=== PATIENT | female | born 1990 | race Caucasian/White ===

== ENCOUNTER → 2017-01-24 | Outpatient (CLI) | payer MEDICAID ==
[2017-01-24 07:56] LABS: ALT 66 U/L (9-52); AST 42 U/L (14-36); Alkaline Phosphatase 71 U/L (38-126); Anion Gap 10 mmol/L; Blood Urea Nitrogen 14 mg/dL (7-17); Calcium 10.1 mg/dL (8.4-10.2); Carbon Dioxide 26 mmol/L (22-30); Chloride 106 mmol/L (98-107); Cholesterol 190 mg/dL (<200); Glucose 101 mg/dL (74-99); HDL Cholesterol 54 mg/dL (40-60); Non-African American GFR(MDRD) >60 (>60 ml/min/1.73 sqM); Potassium 5.6 mmol/L (3.5-5.1); Sodium 142 mmol/L (137-145); Total Bilirubin 0.3 mg/dL (0.2-1.3); Total Protein 7.8 g/dL (6.3-8.2); Triglycerides 139 mg/dL (<150)
[2017-01-24 08:46] LABS: Basophils # (A) 0.1 k/uL (0-0.2); Basophils % (A) 2 %; CH 29.1; CHCM 33.8; Eosinophils # (A) 0.2 k/uL (0-0.7); Eosinophils % (A) 3 %; HCT 43.1 % (34.0-46.0); HDW 2.44; HGB 14.1 gm/dL (11.4-16.0); Luc # (Auto) 0.12; Luc % (Auto) 2; Lymphocytes # (A) 1.8 k/uL (1.0-4.8); Lymphocytes % (A) 32 %; MCH 28.2 pg (25.0-35.0); MCHC 32.6 g/dL (31.0-37.0); MCV 86.4 fL (80.0-100.0); Mean Platelet Volume 7.1; Monocytes # (A) 0.3 k/uL (0-1.0); Monocytes % (A) 6 %; Neutrophils # (A) 3.2 k/uL (1.3-7.7); Neutrophils % (A) 56 %; RBC 4.99 m/uL (3.80-5.40); RDW 13.1 % (11.5-15.5); WBC 5.8 k/uL (3.8-10.6); WBC (Perox) 5.72
== END | disposition home or self-care (01) ==
LOC: LABWHC1 06:47
PROVIDERS: ATTEND Internal Medicine
DX: Z00.01 Encounter for general adult medical examination with abnormal findings (principal)
CPT/HCPCS: 36415; 80053; 80061; 84439; 84443; 85025

== ENCOUNTER → 2017-02-06 | Outpatient (CLI) | payer MEDICAID ==
--- NOTE | 2017-02-06 11:27 | US ---
EXAMINATION TYPE: US abdomen complete DATE OF EXAM: 02/06/2017 COMPARISON: NONE CLINICAL HISTORY: 26-year-old female R74.8 ABN LIVER ENZYMES. TECHNIQUE: Multiple sonographic images of the abdomen are obtained. FINDINGS: MANAGER PATHOLOGY NOTES: *Technical limitations due to large amount of overlying bowel content Liver Length: 19.2 cm Gallbladder Wall: 0.3 cm CBD: 0.3 cm Spleen: 11.4 cm Right Kidney: 11.2 x 4.2 x 4.1 cm Left Kidney: 12.2 x 5.2 x 4.8 cm Pancreas: limited evaluation due to overlying bowel content . Only a portion of the pancreatic body is seen. Liver: enlarged, heterogeneous, echogenic, and attenuating. This secondary limits assessment for foc al lesion. However, some focal fat is seen along the gallbladder fossa. Gallbladder: Within normal limits Evidence for sonographic Morales's sign: no CBD: wnl Spleen: wnl Right Kidney: no evidence of hydronephrosis. Left Kidney: no evidence of hydronephrosis Upper IVC: wnl Abd Aorta: wnl IMPRESSION: Hepatomegaly with moderate to severe hepatic steatosis. Correlate with LFTs, lipid profile, and patie nt risk factors.
== END ==
LOC: RADUSWWP 10:11
PROVIDERS: ATTEND Internal Medicine
DX: K76.0 Fatty (change of) liver, not elsewhere classified (principal); R16.0 Hepatomegaly, not elsewhere classified
CPT/HCPCS: 76700

== ENCOUNTER → 2017-03-27 | Outpatient (CLI) | payer MEDICAID ==
[2017-03-27 14:34] LABS: ALT 55 U/L (9-52); AST 33 U/L (14-36); Alkaline Phosphatase 88 U/L (38-126); Anion Gap 12 mmol/L; Blood Urea Nitrogen 11 mg/dL (7-17); Calcium 9.5 mg/dL (8.4-10.2); Carbon Dioxide 24 mmol/L (22-30); Chloride 105 mmol/L (98-107); Glucose 92 mg/dL (74-99); Non-African American GFR(MDRD) >60 (>60 ml/min/1.73 sqM); Potassium 4.1 mmol/L (3.5-5.1); Sodium 141 mmol/L (137-145); Total Bilirubin 0.3 mg/dL (0.2-1.3); Total Protein 7.9 g/dL (6.3-8.2)
[2017-03-27 19:41] LABS: Iron Saturation 14.29 (12.00-45.00); Iron(FE) 53 ug/dL (50-170); Total Iron Binding Capacity 371 ug/dL (228-460)
[2017-03-27 20:45] LABS: ANA w/Reflex to Titer NEGATIVE (NEGATIVE)
== END | disposition home or self-care (01) ==
LOC: LABWHC1 14:02
PROVIDERS: ATTEND Internal Medicine Gastroenterology
DX: K76.0 Fatty (change of) liver, not elsewhere classified (principal)
CPT/HCPCS: 36415; 80053; 82103; 82390; 82728; 83516; 83540; 83550; 86038; 86803; 87340

== ENCOUNTER 2018-04-06 10:36 | Emergency (ER) | payer MEDICAID ==
[2018-04-06] MEDS ORDERED: SODIUM CHLORIDE 0.9% 1,000 ML IV STA (11:29)
[2018-04-06] MEDS ORDERED: ONDANSETRON 4 MG/2 ML VIAL IVP STA (11:29)
[2018-04-06] MEDS ORDERED: ACETAMINOPHEN IV (For NPO) 1,000 MG in EMPTY BAG 1 BAG IVPB STA (11:29)
--- NOTE | 2018-04-06 11:31 | ED ---
General Adult HPI - General Chief complaint: Nausea/Vomiting/Diarrhea Stated complaint: poss flu Time Seen by Provider: 04/06/18 11:19 Source: patient, RN notes reviewed Mode of arrival: ambulatory Limitations: no limitations - History of Present Illness Initial comments: Patient 27-year-old female presenting to emergency room today with chief complaint of fevers over the last week feeling nausea and vomiting unable to keep anything down over the past 2 days. Patient denies any specific abdominal pain. She does not that she had upper respiratory symptoms 1 week ago but seems a status improved. She states that she has had increased nausea vomiting past 2 days unable to keep food or medicine down. Patient admits to mild headache. Denies any other complaints or symptoms. Patient denies any recent shortness of breath, chest pain, back pain, numbness or tingling, dysuria or hematuria, constipation or diarrhea, visual changes, or any other complaints. - Related Data Home Medications Medication Instructions Recorded Confirmed Venlafaxine HCl ER [Effexor Xr] 150 mg PO W/SUPPER 04/06/18 04/06/18 Previous Rx's Medication Instructions Recorded Metoclopramide HCl [Reglan] 10 mg PO Q6HR PRN #15 tab 04/06/18 Allergies Allergy/AdvReac Type Severity Reaction Status Date / Time No Known Allergies Allergy Verified 04/06/18 11:18 Review of Systems ROS Statement: Those systems with pertinent positive or pertinent negative responses have been documented in the HPI. ROS Other: All systems not noted in ROS Statement are negative. Past Medical History Past Medical History: No Reported History History of Any Multi-Drug Resistant Organisms: None Reported Past Surgical History: Appendectomy Additional Past Surgical History / Comment(s): 2005 Past Anesthesia/Blood Transfusion Reactions: No Reported Reaction Past Psychological History: No Psychological Hx Reported Smoking Status: Never smoker Past Alcohol Use History: None Reported Past Drug Use History: None Reported - Past Family History Father Family Medical History: Diabetes Mellitus General Exam - General Exam Comments Initial Comments: General: The patient is awake and alert, in no distress, and does not appear acutely ill. Eye: Pupils are equal, round and reactive to light. Extra-ocular movements are intact. No nystagmus. There is normal conjunctiva bilaterally. No signs of icterus. Ears, nose, mouth and throat: There are moist mucous membranes and no oral lesions. Neck: The neck is supple, there is no tenderness or JVD. Cardiovascular: There is a regular rate and rhythm. No murmur, rub or gallop is appreciated. Respiratory: Lungs are clear to auscultation, respirations are non-labored, breath sounds are equal. No wheezes, stridor, rales, or rhonchi. Gastrointestinal: Soft, non-distended, non-tender abdomen without masses or organomegaly noted. There is no rebound or guarding present. No CVA tenderness. Musculoskeletal: Normal ROM, no tenderness. Sensation intact. Strength 5/5. Pulses equal bilaterally 2+. Neurological: A&O x 3. CN II-XII intact, There are no obvious motor or sensory deficits. Coordination appears grossly intact. Speech is normal. Skin: Skin is warm and dry and no rashes or lesions are noted. Psychiatric: Cooperative, appropriate mood & affect, normal judgment. Limitations: no limitations Course Vital Signs 04/06/18 04/06/18 04/06/18 10:38 13:07 14:08 Temperature 98.6 F 100.6 F H Pulse Rate 116 H 94 92 Respiratory 20 18 18 Rate Blood Pressure 130/89 140/90 113/77 O2 Sat by Pulse 100 98 99 Oximetry Medical Decision Making - Medical Decision Making Patient reexamined at this time shows no signs of distress. She is resting comfortably. Patient's labs are been reviewed does show mildly elevated lipase at 385. Patient has no specific abdominal pain on palpation. Right upper quadrant is nontender. Ultrasound was performed showing no evidence of acute cholecystitis. Common bile duct was with the normal limits. H&H is had fevers off and on over the last week. 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 She's had some nausea vomiting which improved after Reglan here in the ER. Patient's symptoms are felt to be due to viral illness. Chest x-ray is clear. At this time patient discomfort being discharged with nausea medication. Advised continue Tylenol/ibuprofen for pain and fever. Advised follow-up the family doctor over the next 2 days return here to the emergency room if any symptoms increase worsen. - Lab Data Result diagrams: 04/06/18 11:57 04/06/18 11:57 Lab Results 04/06/18 04/06/18 04/06/18 Range/Units 11:57 11:57 11:57 WBC 9.0 (3.8-10.6) k/uL RBC 4.62 (3.80-5.40) m/uL Hgb 13.6 (11.4-16.0) gm/dL Hct 38.8 (34.0-46.0) % MCV 83.8 (80.0-100.0) fL MCH 29.3 (25.0-35.0) pg MCHC 35.0 (31.0-37.0) g/dL RDW 12.4 (11.5-15.5) % Plt Count 415 (150-450) k/uL Neutrophils % 86 % Lymphocytes % 9 % Monocytes % 3 % Eosinophils % 1 % Basophils % 0 % Neutrophils # 7.7 (1.3-7.7) k/uL Lymphocytes # 0.8 L (1.0-4.8) k/uL Monocytes # 0.3 (0-1.0) k/uL Eosinophils # 0.0 (0-0.7) k/uL Basophils # 0.0 (0-0.2) k/uL Sodium 141 (137-145) mmol/L Potassium 4.4 (3.5-5.1) mmol/L Chloride 105 (98-107) mmol/L Carbon Dioxide 23 (22-30) mmol/L Anion Gap 13 mmol/L BUN 18 H (7-17) mg/dL Creatinine 0.64 (0.52-1.04) mg/dL Est GFR (CKD-EPI)AfAm >90 (>60 ml/min/1.73 sqM) Est GFR (CKD-EPI)NonAf >90 (>60 ml/min/1.73 sqM) Glucose 109 H (74-99) mg/dL Calcium 10.2 (8.4-10.2) mg/dL Total Bilirubin 0.6 (0.2-1.3) mg/dL AST 36 (14-36) U/L ALT 41 (9-52) U/L Alkaline Phosphatase 83 (38-126) U/L Total Protein 8.8 H (6.3-8.2) g/dL Albumin 4.7 (3.5-5.0) g/dL Lipase 381 H (23-300) U/L Urine Color Urine Appearance (Clear) Urine pH (5.0-8.0) Ur Specific [place] (1.001-1.035) Urine Protein (Negative) Urine Glucose (UA) (Negative) Urine Ketones (Negative) Urine Blood (Negative) Urine Nitrite (Negative) Urine Bilirubin (Negative) Urine Urobilinogen (<2.0) mg/dL Ur Leukocyte Esterase (Negative) Urine RBC (0-5) /hpf Urine WBC (0-5) /hpf Ur Squamous Epith Cells (0-4) /hpf Urine Bacteria (None) /hpf Urine Mucus (None) /hpf Urine HCG, Qual Not Detected (Not Detectd) 04/06/18 Range/Units 11:57 WBC (3.8-10.6) k/uL RBC (3.80-5.40) m/uL Hgb (11.4-16.0) gm/dL Hct (34.0-46.0) % MCV (80.0-100.0) fL MCH (25.0-35.0) pg MCHC (31.0-37.0) g/dL RDW (11.5-15.5) % Plt Count (150-450) k/uL Neutrophils % % Lymphocytes % % Monocytes % % Eosinophils % % Basophils % % Neutrophils # (1.3-7.7) k/uL Lymphocytes # (1.0-4.8) k/uL Monocytes # (0-1.0) k/uL Eosinophils # (0-0.7) k/uL Basophils # (0-0.2) k/uL Sodium (137-145) mmol/L Potassium (3.5-5.1) mmol/L Chloride (98-107) mmol/L Carbon Dioxide (22-30) mmol/L Anion Gap mmol/L BUN (7-17) mg/dL Creatinine (0.52-1.04) mg/dL Est GFR (CKD-EPI)AfAm (>60 ml/min/1.73 sqM) Est GFR (CKD-EPI)NonAf (>60 ml/min/1.73 sqM) Glucose (74-99) mg/dL Calcium (8.4-10.2) mg/dL Total Bilirubin (0.2-1.3) mg/dL AST (14-36) U/L ALT (9-52) U/L Alkaline Phosphatase (38-126) U/L Total Protein (6.3-8.2) g/dL Albumin (3.5-5.0) g/dL Lipase (23-300) U/L Urine Color Yellow Urine Appearance Clear (Clear) Urine pH 7.5 (5.0-8.0) Ur Specific [place] 1.023 (1.001-1.035) Urine Protein 1+ H (Negative) Urine Glucose (UA) Negative (Negative) Urine Ketones 4+ H (Negative) Urine Blood Negative (Negative) Urine Nitrite Negative (Negative) Urine Bilirubin Negative (Negative) Urine Urobilinogen 4.0 (<2.0) mg/dL Ur Leukocyte Esterase Negative (Negative) Urine RBC 4 (0-5) /hpf Urine WBC 1 (0-5) /hpf Ur Squamous Epith Cells 4 (0-4) /hpf Urine Bacteria Rare H (None) /hpf Urine Mucus Rare H (None) /hpf Urine HCG, Qual (Not Detectd) Disposition Clinical Impression: Nausea & vomiting, Viral syndrome Disposition: HOME SELF-CARE Condition: Good Instructions: Acute Nausea and Vomiting (ED) Additional Instructions: Please use medication as discussed. Please follow-up with family doctor in the next 2 days of symptoms have not improved. Please return to emergency room if the symptoms increase or worsen or for any other concerns. Prescriptions: Metoclopramide HCl [Reglan] 10 mg PO Q6HR PRN #15 tab PRN Reason: Nausea Is patient prescribed a controlled substance at d/c from ED?: No Referrals: Yara Mcrae MD [Primary Care Provider] - 1-2 days Time of Disposition: 14:45
[2018-04-06 12:17] LABS: Basophils % (A) 0 %; Eosinophils % (A) 1 %; HCT 38.8 % (34.0-46.0); HGB 13.6 gm/dL (11.4-16.0); Lymphocytes # (A) 0.8 k/uL (1.0-4.8); Lymphocytes % (A) 9 %; MCH 29.3 pg (25.0-35.0); MCV 83.8 fL (80.0-100.0); Mean Platelet Volume 6.6; Monocytes # (A) 0.3 k/uL (0-1.0); Monocytes % (A) 3 %; Neutrophils # (A) 7.7 k/uL (1.3-7.7); Neutrophils % (A) 86 %; Platelet Count 415 k/uL (150-450); RBC 4.62 m/uL (3.80-5.40); RDW 12.4 % (11.5-15.5)
[2018-04-06 12:27] LABS: ALT 41 U/L (9-52); AST 36 U/L (14-36); Albumin 4.7 g/dL (3.5-5.0); Alkaline Phosphatase 83 U/L (38-126); Anion Gap 13 mmol/L; Blood Urea Nitrogen 18 mg/dL (7-17); Calcium 10.2 mg/dL (8.4-10.2); Carbon Dioxide 23 mmol/L (22-30); Chloride 105 mmol/L (98-107); Glucose 109 mg/dL (74-99); Lipase 381 U/L (23-300); Potassium 4.4 mmol/L (3.5-5.1); Sodium 141 mmol/L (137-145); Total Bilirubin 0.6 mg/dL (0.2-1.3); Total Protein 8.8 g/dL (6.3-8.2)
[2018-04-06 12:33] LABS: Appearance,Urine Clear (Clear); Bacteria,Urine Rare /hpf; Bilirubin,Urine Negative (Negative); Blood,Urine Negative (Negative); Color,Urine Yellow; Glucose,Urine (UA) Negative (Negative); Ketones,Urine 4+ (Negative); Leukocyte Esterase,Urine Negative (Negative); Mucus,Urine Rare /hpf; Nitrite,Urine Negative (Negative); PH, Urine 7.5 (5.0-8.0); Protein,Urine 1+ (Negative); RBC,Urine 4 /hpf (0-5); Specific Gravity,Urine 1.023 (1.001-1.035); Squamous Epithelial Cell,Urine 4 /hpf (0-4)
--- NOTE | 2018-04-06 12:50 | XR ---
EXAMINATION TYPE: XR chest 2V DATE OF EXAM: 04/06/2018 COMPARISON: NONE HISTORY: Cough congestion and fever. TECHNIQUE: Frontal and lateral views of the chest are obtained. FINDINGS: There is no focal air space opacity, pleural effusion, or pneumothorax seen. The cardiac silhouette size is within normal limits. The osseous structures are intact. IMPRESSION: No suspicious acute pulmonary process.
[2018-04-06] MEDS ORDERED: METOCLOPRAMIDE 5 MG/ML 2 ML VIAL IVP STA (12:59)
[2018-04-06 13:08] VITALS: RESP 18
[2018-04-06 14:10] VITALS: BP 113/77; PULSE 92; TEMP 100.6
--- NOTE | 2018-04-06 14:10 | US ---
EXAMINATION TYPE: US abdomen limited DATE OF EXAM: 04/06/2018 COMPARISON: 02/06/2017 CLINICAL HISTORY: 27-year-old female Pain. N/V, no surgeries TECHNIQUE: Multiple sonographic images of the right upper quadrant are obtained. FINDINGS: EXAM MEASUREMENTS: Liver Length: 16.8 cm versus 19.2 cm, previously Gallbladder Wall: 0.1 cm CBD: 0.3 cm Right Kidney: 9.7 x 4.8 x 4.0 cm Pancreas: wnl Liver: Marked increased echogenicity with far field attenuation. Gallbladder: wnl Evidence for sonographic Morales's sign: neg CBD: wnl Right Kidney: wnl IMPRESSION: While the overall size of the liver shows improvement from the prior exam, there remains at least mod erate hepatic steatosis. Again, correlate with LFTs, lipid profile, and patient risk factors.
== END 2018-04-06 14:45 | disposition home or self-care (01) ==
LOC: EC 10:36
DX: B34.9 Viral infection, unspecified (principal); R74.8 Abnormal levels of other serum enzymes; Z79.899 Other long term (current) drug therapy; Z90.49 Acquired absence of other specified parts of digestive tract
CPT/HCPCS: 36415; 80053; 83690; 85025; 81001; 81025; 71046; 76705; 99284; 96365; 96375 ×2; J2765; J2405; J0131

== ENCOUNTER → 2018-09-21 | Outpatient (CLI) | payer MEDICAID ==
[2018-09-21 14:48] LABS: HCT 37.2 % (34.0-46.0); HGB 12.9 gm/dL (11.4-16.0); MCH 28.4 pg (25.0-35.0); MCHC 34.6 g/dL (31.0-37.0); MCV 82.2 fL (80.0-100.0); Mean Platelet Volume 6.5; Platelet Count 385 k/uL (150-450); RBC 4.53 m/uL (3.80-5.40); RDW 12.8 % (11.5-15.5); WBC 8.8 k/uL (3.8-10.6)
[2018-09-21 14:56] LABS: Glucose 78 mg/dL (74-99)
--- NOTE | 2018-09-21 15:00 | US ---
EXAMINATION TYPE: Transabdominal DATE OF EXAM: 09/21/2018 2:12 PM COMPARISON: NONE CLINICAL HISTORY: Z36 Confirm Dates. EXAM PERFORMED: EXAM MEASUREMENTS: GESTATIONAL AGE / DATING Physician Established: Not yet established Dates by LMP: (8 weeks/6 days) EDC: 04/27/19 Dates by First Scan: No previous this is first scan Dates by Current Scan for: (5 weeks/3 days) EDC: 05/21/19 MATERNAL ANATOMY Uterus: 11.9 x 6.2 x 5.3cm Right Ovary: 3.1 x 2.8 x 2.6cm Left Ovary: 2.6 x 1.6 x 1.5cm Post CDS / Adnexa: wnl Presence of free fluid: no Presence of possible corpus luteal cyst measuring 2.1 x 1.7 x 1.6cm Presence of subchorionic bleed: no GESTATION / SURVEY MSD: 0.9 (5 weeks/3 days) Yolk Sac (normal less than 6mm): n/a No pole identified at this time. Early IUP vs missed . Date of LMP: 07/21/18 Beta HcG (if available): Not available at this time Anteverted uterus is seen. Endometrium is thickened to 17 mm. There is 1.4 x 0.7 x 0.7 cm oval anecho ic area in the high endometrium could reflect early gestational sac. No yolk sac or pole is pre sent. No free fluid in pelvic cul-de-sac is seen. Both ovaries are seen. Within the right ovary there is 2.1 cm oval anechoic lesion could reflect leti us luteal cyst. No suspicious extraovarian adnexal masses are present. IMPRESSION: Ultrasound findings favor too early to visualize intrauterine gestation but spontaneous is i n differential and ectopic is not excluded. Serial beta hCG and ultrasound follow-up is adv ised.
[2018-09-21 20:29] LABS: HIV 1 AB Non-Reactive (Non-Reactive); HIV AB P24 Non-Reactive (Non-Reactive); HIV P24 AG Non-Reactive (Non-Reactive)
== END | disposition home or self-care (01) ==
LOC: RADUSWWP 13:14
PROVIDERS: ATTEND Obstetrics & Gynecology
DX: Z36.89 Encounter for other specified antenatal screening (principal); Z34.80 Encounter for supervision of other normal pregnancy, unspecified trimester
CPT/HCPCS: 76801; 76817; 82565; 82947; 85027; 86762; 86780; 86850; 86900; 86901; 87340; 87390

== ENCOUNTER → 2018-09-23 | Outpatient (CLI) | payer MEDICAID | LOC: LABWHC1 07:21 | PROVIDERS: ATTEND Obstetrics & Gynecology | DX: Z34.80 Encounter for supervision of other normal pregnancy, unspecified trimester (principal); Z3A.00 Weeks of gestation of pregnancy not specified | CPT/HCPCS: 36415; 84702 ==

== ENCOUNTER → 2018-09-25 | Outpatient (CLI) | payer MEDICAID | END | disposition home or self-care (01) | LOC: LABWHC1 07:24 | PROVIDERS: ATTEND Obstetrics & Gynecology | DX: Z34.80 Encounter for supervision of other normal pregnancy, unspecified trimester (principal) | CPT/HCPCS: 36415; 84702 ==

== ENCOUNTER → 2018-10-09 | Outpatient (CLI) | payer MEDICAID | END | disposition home or self-care (01) | LOC: LABWHC1 14:22 | PROVIDERS: ATTEND Obstetrics & Gynecology | DX: O03.9 Complete or unspecified spontaneous abortion without complication (principal); R53.83 Other fatigue | CPT/HCPCS: 36415; 84702 ==

== ENCOUNTER 2019-03-24 10:05 | Emergency (ER) | payer MEDICAID ==
[2019-03-24 10:11] VITALS: RESP 18
[2019-03-24] MEDS ORDERED: SODIUM CHLORIDE 0.9% 1,000 ML IV ONE (10:29)
--- NOTE | 2019-03-24 10:38 | ED ---
Female Urogenital HPI - General Chief complaint: Vaginal Bleeding Stated complaint: Female Time Seen by Provider: 03/24/19 10:08 Source: patient, RN notes reviewed, old records reviewed Mode of arrival: ambulatory Limitations: no limitations - History of Present Illness Initial comments: Patient is a 28-year-old female, she presents emergency department today for evaluation for vaginal bleeding times one day. Patient reports that she was that she is 97 weeks at this time. Her TALENT ACQUISITION CONSULTANT is Dr. Clarke. She reports that she has an appointment scheduled for Friday. At this time Patient states that she does have some pelvic pressure and hip pain. She denies any right or left lower quadrant tenderness specifically. Patient is a fema le. - Related Data Home Medications Medication Instructions Recorded Confirmed No Known Home Medications 03/24/19 03/24/19 Allergies Allergy/AdvReac Type Severity Reaction Status Date / Time No Known Allergies Allergy Verified 03/24/19 10:16 Review of Systems ROS Statement: Those systems with pertinent positive or pertinent negative responses have been documented in the HPI. ROS Other: All systems not noted in ROS Statement are negative. Past Medical History Past Medical History: No Reported History History of Any Multi-Drug Resistant Organisms: None Reported Past Surgical History: Appendectomy Additional Past Surgical History / Comment(s): 2006 Past Anesthesia/Blood Transfusion Reactions: No Reported Reaction Past Psychological History: No Psychological Hx Reported Smoking Status: Never smoker Past Alcohol Use History: None Reported Past Drug Use History: None Reported - Past Family History Father Family Medical History: Diabetes Mellitus General Exam - General Exam Comments Initial Comments: 28-year-old female. Alert and oriented 3. Patient appears in no significant distress. Limitations: no limitations General appearance: alert, in no apparent distress Head exam: Present: atraumatic, normocephalic, normal inspection Eye exam: Present: normal appearance, PERRL, EOMI. Absent: scleral icterus, conjunctival injection, periorbital swelling ENT exam: Present: normal exam, mucous membranes moist Neck exam: Present: normal inspection. Absent: tenderness, meningismus, lymphadenopathy Respiratory exam: Present: normal lung sounds bilaterally. Absent: respiratory distress, wheezes, rales, rhonchi, stridor Cardiovascular Exam: Present: regular rate GI/Abdominal exam: Present: soft, normal bowel sounds. Absent: distended, tenderness, guarding, rebound, rigid External exam: Present: other (declines pelvic) Extremities exam: Present: normal inspection, full ROM, normal capillary refill. Absent: tenderness, pedal edema, joint swelling, calf tenderness Back exam: Present: normal inspection Neurological exam: Present: alert, oriented X3, CN II-XII intact Psychiatric exam: Present: normal affect, normal mood Skin exam: Present: warm, dry, intact, normal color. Absent: rash Course Vital Signs 03/24/19 03/24/19 10:07 13:28 Temperature 98.2 F 96.9 F L Pulse Rate 96 98 Respiratory 18 18 Rate Blood Pressure 146/96 129/86 O2 Sat by Pulse 98 98 Oximetry Medical Decision Making - Medical Decision Making 28 year old , presents with vaginal bleeding and believes she is 8 weeks . Rh positive blood type. She refused pelvic exam but reports minor bleeding. She has Viable IUP withHr 178 bpm. Patient US shows fetus is 8 weeks and 2 days. Discussed findings with patient. Discussed case with senior solutions engineer Dr. Santana, and patient can follow up with her scheduled appt on Friday with Dr. Clarke. - Lab Data Result diagrams: 03/24/19 10:54 03/24/19 10:54 Lab Results 03/24/19 03/24/19 03/24/19 Range/Units 10:54 10:54 10:54 WBC 8.5 (3.8-10.6) k/uL RBC 4.49 (3.80-5.40) m/uL Hgb 12.6 (11.4-16.0) gm/dL Hct 37.0 (34.0-46.0) % MCV 82.4 (80.0-100.0) fL MCH 28.0 (25.0-35.0) pg MCHC 34.0 (31.0-37.0) g/dL RDW 12.3 (11.5-15.5) % Plt Count 369 (150-450) k/uL Neutrophils % 71 % Lymphocytes % 21 % Monocytes % 5 % Eosinophils % 2 % Basophils % 1 % Neutrophils # 6.0 (1.3-7.7) k/uL Lymphocytes # 1.7 (1.0-4.8) k/uL Monocytes # 0.4 (0-1.0) k/uL Eosinophils # 0.1 (0-0.7) k/uL Basophils # 0.1 (0-0.2) k/uL PT 9.6 (9.0-12.0) sec INR 0.9 (<1.2) APTT 24.0 (22.0-30.0) sec Sodium 138 (137-145) mmol/L Potassium 3.8 (3.5-5.1) mmol/L Chloride 103 (98-107) mmol/L Carbon Dioxide 23 (22-30) mmol/L Anion Gap 12 mmol/L BUN 6 L (7-17) mg/dL Creatinine 0.54 (0.52-1.04) mg/dL Est GFR (CKD-EPI)AfAm >90 (>60 ml/min/1.73 sqM) Est GFR (CKD-EPI)NonAf >90 (>60 ml/min/1.73 sqM) Glucose 99 (74-99) mg/dL Calcium 9.9 (8.4-10.2) mg/dL Total Bilirubin 0.2 (0.2-1.3) mg/dL AST 21 (14-36) U/L ALT 18 (9-52) U/L Alkaline Phosphatase 73 (38-126) U/L Total Protein 7.8 (6.3-8.2) g/dL Albumin 4.3 (3.5-5.0) g/dL HCG, Quant 02664.0 mIU/mL Urine Color Urine Appearance (Clear) Urine pH (5.0-8.0) Ur Specific [place] (1.001-1.035) Urine Protein (Negative) Urine Glucose (UA) (Negative) Urine Ketones (Negative) Urine Blood (Negative) Urine Nitrite (Negative) Urine Bilirubin (Negative) Urine Urobilinogen (<2.0) mg/dL Ur Leukocyte Esterase (Negative) Urine RBC (0-5) /hpf Urine WBC (0-5) /hpf Ur Squamous Epith Cells (0-4) /hpf Urine Mucus (None) /hpf Blood Type Blood Type Recheck Bld Type Recheck Status 03/24/19 03/24/19 Range/Units 10:54 10:54 WBC (3.8-10.6) k/uL RBC (3.80-5.40) m/uL Hgb (11.4-16.0) gm/dL Hct (34.0-46.0) % MCV (80.0-100.0) fL MCH (25.0-35.0) pg MCHC (31.0-37.0) g/dL RDW (11.5-15.5) % Plt Count (150-450) k/uL Neutrophils % % Lymphocytes % % Monocytes % % Eosinophils % % Basophils % % Neutrophils # (1.3-7.7) k/uL Lymphocytes # (1.0-4.8) k/uL Monocytes # (0-1.0) k/uL Eosinophils # (0-0.7) k/uL Basophils # (0-0.2) k/uL PT (9.0-12.0) sec INR (<1.2) APTT (22.0-30.0) sec Sodium (137-145) mmol/L Potassium (3.5-5.1) mmol/L Chloride (98-107) mmol/L Carbon Dioxide (22-30) mmol/L Anion Gap mmol/L BUN (7-17) mg/dL Creatinine (0.52-1.04) mg/dL Est GFR (CKD-EPI)AfAm (>60 ml/min/1.73 sqM) Est GFR (CKD-EPI)NonAf (>60 ml/min/1.73 sqM) Glucose (74-99) mg/dL Calcium (8.4-10.2) mg/dL Total Bilirubin (0.2-1.3) mg/dL AST (14-36) U/L ALT (9-52) U/L Alkaline Phosphatase (38-126) U/L Total Protein (6.3-8.2) g/dL Albumin (3.5-5.0) g/dL HCG, Quant mIU/mL Urine Color Yellow Urine Appearance Clear (Clear) Urine pH 6.0 (5.0-8.0) Ur Specific [place] 1.015 (1.001-1.035) Urine Protein Negative (Negative) Urine Glucose (UA) Negative (Negative) Urine Ketones Negative (Negative) Urine Blood Trace H (Negative) Urine Nitrite Negative (Negative) Urine Bilirubin Negative (Negative) Urine Urobilinogen <2.0 (<2.0) mg/dL Ur Leukocyte Esterase Negative (Negative) Urine RBC <1 (0-5) /hpf Urine WBC 2 (0-5) /hpf Ur Squamous Epith Cells 1 (0-4) /hpf Urine Mucus Few H (None) /hpf Blood Type A Positive Blood Type Recheck A Pos Bld Type Recheck Status No - Radiology Data Radiology results: report reviewed Single live IUP meauring 8 weeks and 4 days. Hr 178 bpm. Disposition Clinical Impression: 8 weeks gestation of Disposition: HOME SELF-CARE Condition: Good Instructions (If sedation given, give patient instructions): (ED) Additional Instructions: Follow-up with Dr. Clarke on Friday. Return to the emergency department if any al arming signs or symptoms occur. Is patient prescribed a controlled substance at d/c from ED?: No Referrals: Yara Mcrea MD [Primary Care Provider] - 1-2 days Time of Disposition: 13:02
[2019-03-24 11:12] LABS: Basophils # (A) 0.1 k/uL (0-0.2); Basophils % (A) 1 %; Eosinophils # (A) 0.1 k/uL (0-0.7); Eosinophils % (A) 2 %; HGB 12.6 gm/dL (11.4-16.0); Lymphocytes # (A) 1.7 k/uL (1.0-4.8); Lymphocytes % (A) 21 %; MCV 82.4 fL (80.0-100.0); Monocytes # (A) 0.4 k/uL (0-1.0); Monocytes % (A) 5 %; Neutrophils % (A) 71 %; Platelet Count 369 k/uL (150-450); RBC 4.49 m/uL (3.80-5.40); RDW 12.3 % (11.5-15.5); WBC 8.5 k/uL (3.8-10.6)
[2019-03-24 11:17] LABS: Appearance,Urine Clear (Clear); Bilirubin,Urine Negative (Negative); Blood,Urine Trace (Negative); Color,Urine Yellow; Glucose,Urine (UA) Negative (Negative); Ketones,Urine Negative (Negative); Leukocyte Esterase,Urine Negative (Negative); Mucus,Urine Few /hpf; Nitrite,Urine Negative (Negative); Protein,Urine Negative (Negative); RBC,Urine <1 /hpf (0-5); Specific Gravity,Urine 1.015 (1.001-1.035); Squamous Epithelial Cell,Urine 1 /hpf (0-4); Urobilinogen,Urine <2.0 mg/dL (<2.0)
[2019-03-24 11:24] LABS: ALT 18 U/L (9-52); AST 21 U/L (14-36); African American GFR (CKD) >90 (>60 ml/min/1.73 sqM); Albumin 4.3 g/dL (3.5-5.0); Alkaline Phosphatase 73 U/L (38-126); Anion Gap 12 mmol/L; Blood Urea Nitrogen 6 mg/dL (7-17); Calcium 9.9 mg/dL (8.4-10.2); Carbon Dioxide 23 mmol/L (22-30); Chloride 103 mmol/L (98-107); Glucose 99 mg/dL (74-99); Potassium 3.8 mmol/L (3.5-5.1); Sodium 138 mmol/L (137-145); Total Bilirubin 0.2 mg/dL (0.2-1.3); Total Protein 7.8 g/dL (6.3-8.2)
[2019-03-24 11:33] LABS: INR 0.9 (<1.2); Prothrombin Time 9.6 sec (9.0-12.0)
--- NOTE | 2019-03-24 11:47 | US ---
EXAMINATION TYPE: Transabdominal DATE OF EXAM: 03/24/2019 11:23 AM COMPARISON: NONE CLINICAL HISTORY: pain. Bleeding x 2 days, 3, para 1, miscarriage 1 EXAM PERFORMED: Transabdominal (TA) EXAM MEASUREMENTS: GESTATIONAL AGE / DATING Physician Established: Not established yet Dates by LMP: Unknown Dates by First Scan: This is 1st scan Dates by Current Scan for: (8 weeks/4 days) EDC: 10/30/2019 MATERNAL ANATOMY Uterus: 9.8 x 6.2 x 7.6cm, anteverted Right Ovary: 2.6 x 1.3 x 1.8cm Left Ovary: 2.4 x 1.8 x 2.2cm Post CDS / Adnexa: wnl Presence of free fluid: no Presence of corpus luteal cyst: left ovary: 1.6 x 1.5 x 1.4cm Presence of subchorionic bleed: yes, 3.0 x 1.7 x 1.7cm GESTATION / SURVEY CRL: 2.0cm (8 weeks/4 days) Yolk Sac (normal less than 6mm): 3.5mm Heart Rate: 178 bpm Rhythm: Normal IUP: Viable IUP Date of LMP: Unknown Beta HcG (if available): Not available at time of exam. Single live intrauterine gestation is present as gestational sac, yolk sac, and pole are seen. No free fluid in pelvic cul-de-sac. Towards the end of study the right of the gestational sac there i s a small to moderate-sized 3.0 x 1.7 x 1.7 cm fluid collection could reflect implantation bleed or s ubchorionic hemorrhage. Both ovaries are seen. Within the left ovary there is a 1.5 cm peripheral hypoechoic lesion felt to r eflect corpus luteal cyst. No suspicious extra ovarian adnexal lesions are present. IMPRESSION: Single live intrauterine gestation is confirmed, mean crown-rump length is 2.0 cm corresp onding to 8 week 4 day old fetus.
[2019-03-24 13:29] VITALS: BP 129/86; PULSE 98; TEMP 96.9
== END 2019-03-24 13:32 | disposition home or self-care (01) ==
LOC: EC 10:05
DX: O20.9 Hemorrhage in early pregnancy, unspecified (principal); Z3A.08 8 weeks gestation of pregnancy
CPT/HCPCS: 36415; 76801; 80053; 81001; 84702; 85025; 85610; 85730; 86900; 86901; 96360; 96361; 99284

== ENCOUNTER → 2019-04-09 | Outpatient (CLI) | payer MEDICAID ==
[2019-04-10 01:07] LABS: African American GFR (CKD) 143.8 (60.0-200.0)
[2019-04-10 01:55] LABS: Hepatitis B Surface Antigen Non-Reactive (Non-Reactive)
== END | disposition home or self-care (01) ==
LOC: LABWHC1 16:02
PROVIDERS: ATTEND Obstetrics & Gynecology
DX: Z34.81 Encounter for supervision of other normal pregnancy, first trimester (principal)
CPT/HCPCS: 36415; 82565; 86762; 86780; 86850; 87340; 87390

== ENCOUNTER → 2019-06-10 | Outpatient (CLI) | payer MEDICAID ==
--- NOTE | 2019-06-11 07:22 | US ---
EXAMINATION TYPE: US OB anatomy transabd DATE OF EXAM: 06/10/2019 COMPARISON: NONE HISTORY: Large for dates 2nd trimester O36.62X0 TECHNIQUE: Transabdominal (TA) EXAM MEASUREMENTS: GESTATIONAL AGE / DATING Physician Established: (19 weeks/5 days) EDC: 11/09/19 Dates by LMP: (19 weeks/5 days) EDC: 11/09/19 Dates by First Scan: (19 weeks/5 days) EDC: 10/30/19 Dates by Current Scan for: (19 weeks/4 days) EDC: 10/31/19 SURVEY IUP: Single PLACENTA: Anterior PREVIA: No previa VELIA: 13.9 cm CERVICAL LENGTH (transabdominal: norm > 3.0cm): 4.4 cm BIOMETRY PRESENTATION: Breech BPD: 4.8 cm 20 weeks / 3 days HC: 17.4 cm 20 weeks / 0 days AC: 14.2 cm 19 weeks / 4 days FL: 3.1 cm 19 weeks / 4 days ESTIMATED WEIGHT IN GRAMS: 302 grams ESTIMATED WEIGHT IN LBS/OZ: 0 lbs. 11 oz. WEIGHT PERCENTAGE BASED ON ESTABLISHED DATE: 39.3 % HC/AC: 1.2 FL/AC: 21.8 HEART RATE: 144 bpm RHYTHM: Normal ANATOMY SEEN (within normal limits): * Lateral Vent (< 1 cm) 0.7 cm * Cisterna Magna (< 1.1 cm) 0.6 cm * Nuchal Fold (< 0.6 cm) 0.3 cm * Cerebellum (varies with age) 1.9 cm Choroid Plexus (bilateral) Midline Falx Cavus Septi Pellucidi Four Chamber Heart Outflow tracts: LVOT/RVOT Stomach Situs Nose / Lips limited Diaphragm Kidneys (bilateral) Bladder Cord Insert Three Vessel Cord Arms (bilateral) Legs (bilateral) ANATOMY NOT SEEN: Longitudinal Spine Transverse Spine Patient is going to be here tomorrow for spine. IMPRESSION: 1. Single intrauterine gestation estimated at 19 weeks 4 days gestation based on current ultrasound m easurements. 2. Cardiac activity measures 144 bpm. 3. Limited evaluation of the nose and lips, and longitudinal and transverse spine cannot be evaluated at this time due to positioning. Patient scheduled for returning for additional evaluation.
== END | disposition home or self-care (01) ==
LOC: RADUSWWP 15:27
PROVIDERS: ATTEND Obstetrics & Gynecology
DX: O36.62X0 Maternal care for excessive fetal growth, second trimester, not applicable or unspecified (principal); Z3A.19 19 weeks gestation of pregnancy
CPT/HCPCS: 76811

== ENCOUNTER → 2019-06-11 | Outpatient (CLI) | payer MEDICAID ==
--- NOTE | 2019-06-12 10:47 | US ---
EXAMINATION TYPE: US OB Call Back DATE OF EXAM: 06/11/2019 COMPARISON: NONE CLINICAL HISTORY: O36.62X0 LARGE FOR DATES. GESTATIONAL AGE / DATING Dates by Initial Survey Scan: (19 weeks/4 days) EDC: 10/31/19 HEART RATE: 149 bpm RHYTHM: Normal ANATOMY SEEN (second anatomic survey look): Longitudinal Spine: No abnormality Transverse Spine: No evident abnormality Nose / Lips: IMPRESSION: Limited ultrasound. Viable single intrauterine .
== END | disposition home or self-care (01) ==
LOC: RADUSWWP 14:01
PROVIDERS: ATTEND Obstetrics & Gynecology
DX: Z53.9 Procedure and treatment not carried out, unspecified reason (principal)

== ENCOUNTER → 2019-07-20 | Outpatient (CLI) | payer MEDICAID, BC | END | disposition home or self-care (01) | LOC: LABWHC1 08:52 | PROVIDERS: ATTEND Obstetrics & Gynecology | DX: Z34.82 Encounter for supervision of other normal pregnancy, second trimester (principal) | CPT/HCPCS: 36415; 82950 ==

== ENCOUNTER 2019-10-14 11:03 | Inpatient (IN) | payer MEDICAID, BC ==
[2019-10-14 11:41] LABS: Appearance,Urine Cloudy (Clear); Bilirubin,Urine Negative (Negative); Blood,Urine Moderate (Negative); Color,Urine Yellow; Glucose,Urine (UA) Negative (Negative); Ketones,Urine Negative (Negative); Leukocyte Esterase,Urine Moderate (Negative); Mucus,Urine Many /hpf; Nitrite,Urine Negative (Negative); PH, Urine 6.5 (5.0-8.0); Protein,Urine 1+ (Negative); RBC,Urine <1 /hpf (0-5); Specific Gravity,Urine 1.022 (1.001-1.035); Squamous Epithelial Cell,Urine 10 /hpf (0-4); Urobilinogen,Urine <2.0 mg/dL (<2.0); WBC,Urine 5 /hpf (0-5)
[2019-10-14 12:27] LABS: Protein/Creatinine Ratio,Urine 0.187
[2019-10-14 12:41] LABS: ALT 10 U/L (4-34); AST 20 U/L (14-36); African American GFR (CKD) >90 (>60 ml/min/1.73 sqM); Blood Urea Nitrogen 10 mg/dL (7-17); LDH 358 U/L (313-618); Non-African American GFR(CKD) >90 (>60 ml/min/1.73 sqM); Uric Acid 6.3 mg/dL (3.7-7.4)
[2019-10-14 12:42] LABS: Basophils % (A) 1 %; Eosinophils % (A) 0 %; HCT 39.7 % (34.0-46.0); HGB 12.9 gm/dL (11.4-16.0); Lymphocytes # (A) 1.6 k/uL (1.0-4.8); Lymphocytes % (A) 18 %; MCH 27.4 pg (25.0-35.0); MCHC 32.4 g/dL (31.0-37.0); MCV 84.4 fL (80.0-100.0); Mean Platelet Volume 7.9; Monocytes # (A) 0.4 k/uL (0-1.0); Monocytes % (A) 5 %; Neutrophils # (A) 6.8 k/uL (1.3-7.7); Neutrophils % (A) 75 %; Platelet Count 263 k/uL (150-450); RDW 13.6 % (11.5-15.5)
[2019-10-14] MEDS ORDERED: DINOPROSTONE 10 MG INSERT.ER VAGINAL ONE (13:25)
[2019-10-14] MEDS ORDERED: BUTORPHANOL 1 MG/ML 1 ML VIAL IV PRN (13:25)
--- NOTE | 2019-10-14 13:58 | P.HPOB ---
History of Present Illness H&P Date: 10/14/19 Chief Complaint: Vaginal spotting, hypertension This patient is a pleasant 29-year-old 3 para 1 female estimated date of confinement 10/31/2019 estimated gestational age 37-4/7 weeks who called the office this morning after noticing some blood in her undergarments when she woke up. Patient denies contractions, leaking of fluid, or other symptomatology. care is per Dr. Clarke and it appears to be complicated by a grade 3 placenta which she's had testing for. Patient was instructed to go to labor and delivery for evaluation. Evaluation here shows reactive heart tones and no significant bleeding however she's had marketed blood pressure elevations ranging from 140s to 160s over 80s to 100s. Patient did have 1+ proteinuria in the office last week however no symptomatology and her blood pressure was normal at that time. Patient denies headaches or visual changes. Urine does show 1+ protein but it may be contaminated. Preeclampsia labs are normal. I examined the patient her cervix is fingertip external os but closed and thick internal os. My impression is that she has gestational hypertension that is persistent. There is no evidence of severe features at this time. I have recommended the patient proceed with delivery. Since her labs are normal in the baby looks very good, we'll do our best to attempt a vaginal delivery and place Cervidil at this time. Although her blood pressures do not warrant IV treatment at this time I am going to give her an oral dose of labetalol. Review of Systems Genitourinary: Reports Menstruation: Reports amenorrhea Musculoskeletal: bilateral: foot swelling Past Medical History Past Medical History: No Reported History History of Any Multi-Drug Resistant Organisms: None Reported Past Surgical History: Appendectomy Additional Past Surgical History / Comment(s): 2005 Past Anesthesia/Blood Transfusion Reactions: No Reported Reaction Past Psychological History: Depression Smoking Status: Never smoker Past Alcohol Use History: None Reported - Past Family History Father Family Medical History: Diabetes Mellitus Medications and Allergies Home Medications Medication Instructions Recorded Confirmed Type No Known Home Medications 03/24/19 10/14/19 History Allergies Allergy/AdvReac Type Severity Reaction Status Date / Time No Known Allergies Allergy Verified 10/14/19 11:14 Exam Vital Signs Temp Pulse Resp BP Pulse Ox 10/14/19 12:15 98.3 F 96 16 160/97 100 Intake and Output 10/13/19 10/14/19 10/14/19 22:59 06:59 14:59 Other: Weight 87.997 kg - OBG Physical Exam Abdomen: bowel sounds normal, no diffuse tenderness, no bruit present, no guarding noted, no hepatomegaly, no splenomegaly, no mass Vulva: both: normal Vagina: normal moisture, no discharge Cervix: no lesion (Internal os is closed and thick.), no discharge Uterus: enlarged Results blood work shows she is A positive, rubella immune, RPR is nonreactive, HIV is nonreactive, hepatitis B was negative, Glucola was abnormal with a normal three-hour gtt. Most recent ultrasound done on September 26 shows vertex presentation 5 lbs. 2 oz. with a grade 3 placenta. Group B strep was done on the unfortunately I'm unable to find those results. Result Diagrams: 10/14/19 12:11 10/14/19 12:11 Abnormal Lab Results - Last 24 Hours (Table) 10/14/19 Range/Units 11:22 Urine Appearance Cloudy H (Clear) Urine Protein 1+ H (Negative) Urine Blood Moderate H (Negative) Ur Leukocyte Esterase Moderate H (Negative) Ur Squamous Epith Cells 10 H (0-4) /hpf Urine Mucus Many H (None) /hpf Assessment and Plan Assessment: This is a pleasant 29-year-old 3 para 1 female 37-4/7 weeks who presented initially with complaints of spotting but was found to have significant blood pressure elevations consistent with gestational hypertension. Since this patient is beyond 37 weeks I recommended she proceed with delivery secondary to these persistent blood pressure elevations. Cervix is unfavorable at this time therefore am going to proceed with Cervidil placement. Also going to start some oral labetalol. Patient understands that if she has unco ntrollable hypertension remote from delivery or concerns for well-being we'll proceed with immediate section at that time. Given the fact that she's had a previous vaginal delivery, however I think he will respond to the Cervidil and Pitocin. (1) 37 weeks gestation of Current Visit: Yes Status: Acute Code(s): Z3A.37 - 37 WEEKS GESTATION OF SNOMED Code(s): 34373605 (2) Gestational hypertension Current Visit: Yes Status: Acute Code(s): O13.9 - GESTATIONAL HTN W/O SIGNIFICANT PROTEINURIA, UNSP TRIMESTER SNOMED Code(s): 016467787
[2019-10-14] MEDS: LABETALOL 100 MG TAB PO SCH ×2 (15:07→21:03)
[2019-10-14] MEDS ORDERED: AMPICILLIN 1,000 MG in SODIUM CHLORIDE 0.9% 50 ML IVPB SCH (22:37)
[2019-10-14] MEDS ORDERED: OXYTOCIN 10 UNIT/ML 1 ML VIAL IM PRN (22:37)
[2019-10-14] MEDS ORDERED: LACTATED RINGERS 1,000 ML IV SCH (22:37)
[2019-10-14] MEDS ORDERED: AMPICILLIN 2,000 MG in SODIUM CHLORIDE 0.9% 100 ML IVPB STA (22:37)
[2019-10-14] MEDS ORDERED: METHYLERGONOVINE 0.2 MG/ML 1 ML AMP IM PRN (22:37)
[2019-10-14] MEDS ORDERED: CARBOPROST TROMETHAMINE 250 MCG/ML 1 ML AMP IM PRN (22:37)
[2019-10-14] MEDS ORDERED: TERBUTALINE 1 MG/ML VIAL SQ PRN (22:37)
[2019-10-14] MEDS ORDERED: LIDOCAINE 0.5% (PF) 5 MG/ML (50 ML SDV) SQ PRN (22:37)
[2019-10-14] MEDS ORDERED: OXYTOCIN 30 UNITS/500 ML NS 30 UNIT in SALINE 1 500ML.BAG IV SCH (22:37)
[2019-10-14 23:10] LABS: Basophils % (A) 0 %; Eosinophils # (A) 0.1 k/uL (0-0.7); Eosinophils % (A) 1 %; HCT 36.8 % (34.0-46.0); HGB 12.4 gm/dL (11.4-16.0); Lymphocytes # (A) 2.4 k/uL (1.0-4.8); Lymphocytes % (A) 21 %; MCH 28.4 pg (25.0-35.0); MCHC 33.8 g/dL (31.0-37.0); MCV 84.1 fL (80.0-100.0); Monocytes # (A) 0.7 k/uL (0-1.0); Monocytes % (A) 6 %; Neutrophils % (A) 70 %; Platelet Count 323 k/uL (150-450); RBC 4.37 m/uL (3.80-5.40); RDW 13.7 % (11.5-15.5); WBC 11.5 k/uL (3.8-10.6)
[2019-10-14 23:17] LABS: INR 0.9 (<1.2); Partial Thromboplastin Time 23.8 sec (22.0-30.0); Prothrombin Time 9.6 sec (9.0-12.0)
[2019-10-14] MEDS ORDERED: BISACODYL 10 MG SUPP RECTAL PRN (23:22)
[2019-10-14] MEDS ORDERED: HYDROCORTISONE 2.5% RECTAL CREAM 30 GM TUBE RECTAL PRN (23:22)
[2019-10-14] MEDS ORDERED: ZOLPIDEM 5 MG TAB PO PRN (23:22)
[2019-10-14] MEDS ORDERED: LANOLIN CREAM 5 GM TUBE TOPICAL PRN (23:22)
[2019-10-14] MEDS ORDERED: SIMETHICONE 80 MG CHEWABLE PO PRN (23:22)
[2019-10-14] MEDS ORDERED: diphenhydrAMINE 50 MG/ML 1 ML VIAL IVP PRN (23:22)
[2019-10-14] MEDS ORDERED: BENZOCAINE/MENTHOL SPRAY 1 GM/SPRAY AEROSOL TOPICAL PRN (23:22)
[2019-10-14] MEDS ORDERED: WITCH HAZEL 1 EACH MED..PAD TOPICAL PRN (23:22)
[2019-10-14] MEDS ORDERED: diphenhydrAMINE 25 MG CAP PO PRN (23:22)
[2019-10-14] MEDS ORDERED: OXYTOCIN 20 UNITS/1000 ML NS 1,000 ML IV SCH (23:30)
--- NOTE | 2019-10-14 23:32 | P.PROBDLV ---
Vaginal Delivery Note - . Vaginal Delivery Note: Normal spontaneous vaginal delivery viable male infant Apgars 9 and 9 delivery time was 2305 hrs. Please see dictated H&P for intimate details of this patient's admission. In brief summary, this patient is a pleasant 29-year-old 3 para 1 female 37-4/7 weeks gestation who is admitted earlier this afternoon with complaints of spotting was found to have significant gestational hypertension. Patient responded well to an oral dose of labetalol and due to her cervix being closed she was given Cervidil at approximately 4:15. Patient did well and subsequently became uncomfortable approximately half hour ago. The nurses called me and said she was 5 cm with a bulging bag. Immediately I headed into the hospital, however she precipitously delivered in the presence of the nurse at 2305 hrs. Patient went from 5 cm to complete in approximately 5 minutes. This infant is a viable male infant Apgars are 9 and 9 delivery time was 2305 hrs. has spontaneous respiration and good cry and grossly appears normal. I inspected the perineum and there is no lacerations. The placenta spontaneously delivered intact. Estimated blood loss is 150 mL. There are no complications. All counts correct 3. Infant and mother stable in delivery room. Of note the patient had unknown group B strep status although this was done a week ago we could not find the results and therefore she was given a dose of antibiotics, however the baby will need to be drawn due to the unknown status in the less than 4 hour duration of antibiotics.
[2019-10-15] MEDS: LABETALOL 100 MG TAB PO SCH ×2 (08:01→20:49)
[2019-10-15] MEDS: SENNOSIDES-DOCUSATE SODIUM 1 EACH TAB PO SCH ×2 (08:01→19:34)
[2019-10-15] MEDS: IBUPROFEN 600 MG TAB PO PRN ×2 (08:01→19:34)
[2019-10-15 08:14] LABS: Basophils # (A) 0.1 k/uL (0-0.2); Basophils % (A) 0 %; Eosinophils % (A) 0 %; HCT 34.2 % (34.0-46.0); HGB 11.4 gm/dL (11.4-16.0); Lymphocytes # (A) 1.9 k/uL (1.0-4.8); Lymphocytes % (A) 13 %; MCH 28.6 pg (25.0-35.0); MCHC 33.4 g/dL (31.0-37.0); MCV 85.6 fL (80.0-100.0); Mean Platelet Volume 7.8; Monocytes # (A) 0.6 k/uL (0-1.0); Monocytes % (A) 4 %; Neutrophils # (A) 11.9 k/uL (1.3-7.7); Neutrophils % (A) 82 %; Platelet Count 316 k/uL (150-450); RBC 3.99 m/uL (3.80-5.40); RDW 13.9 % (11.5-15.5); WBC 14.6 k/uL (3.8-10.6)
--- NOTE | 2019-10-15 08:26 | P.PNOBGVD ---
Subjective - Subjective Principal diagnosis: Status post vaginal delivery day #1 Interval history: Patient is doing well. She denies any headaches, blurry vision, or swelling. She is breast-feeding. Lochia is decreasing. Pain is fairly well controlled. Patient reports: Reports appetite normal, Reports voiding normally, Reports pain well controlled, Reports ambulating normally : doing well, nursing well Objective - Latest Vital Signs Latest vital signs: Vital Signs Temp Pulse Resp BP Pulse Ox 10/15/19 04:00 98.0 F 104 H 16 149/86 100 10/15/19 01:15 96 16 140/81 10/15/19 00:45 91 16 135/74 10/15/19 00:15 88 16 149/79 10/15/19 00:00 88 16 149/79 10/14/19 23:45 91 16 135/74 10/14/19 23:30 93 16 139/80 10/14/19 23:15 97.1 F L 91 16 126/78 10/14/19 21:03 129/67 10/14/19 12:41 98.3 F 81 16 136/82 10/14/19 12:15 98.3 F 96 16 160/97 100 Intake and Output 10/14/19 10/15/19 10/15/19 22:59 06:59 14:59 Intake Total 120 Output Total 100 Balance 20 Intake: Oral 120 Output: Estimated Blood Loss 100 Other: # Voids 1 - Exam Extremities: Present: normal. Absent: tenderness Abdomen: Present: normal appearance, soft. Absent: distention, tenderness Uterus: Present: normal, firm. Absent: tenderness - Labs Labs: Abnormal Lab Results - Last 24 Hours (Table) 10/14/19 10/14/19 10/15/19 Range/Units 11:22 22:45 07:21 WBC 11.5 H 14.6 H (3.8-10.6) k/uL Neutrophils # 8.0 H 11.9 H (1.3-7.7) k/uL Urine Appearance Cloudy H (Clear) Urine Protein 1+ H (Negative) Urine Blood Moderate H (Negative) Ur Leukocyte Esterase Moderate H (Negative) Ur Squamous Epith Cells 10 H (0-4) /hpf Urine Mucus Many H (None) /hpf Assessment and Plan Assessment: Status post vaginal delivery day #1 Gestational hypertension Plan: We'll continue observation today. Will continue with labetalol 100 mg twice a day. Anticipate discharge home tomorrow as long as blood pressures are stable. I have advised her to follow up with me in 1 week in the office for a blood pressure check and in 6 weeks for check. She is advised to call the office with any questions or concerns prior to her blood pressure check appointm ent.
[2019-10-15] MEDS: ACETAMINOPHEN TAB 325 MG TAB PO PRN (23:38)
[2019-10-16] MEDS: SENNOSIDES-DOCUSATE SODIUM 1 EACH TAB PO SCH (08:01)
[2019-10-16] MEDS: LABETALOL 100 MG TAB PO SCH (08:01)
[2019-10-16] MEDS: ACETAMINOPHEN TAB 325 MG TAB PO PRN (08:02)
[2019-10-16 08:11] VITALS: RESP 16; TEMP 98
--- NOTE | 2019-10-16 08:20 | P.DS ---
Providers Date of admission: 10/14/19 12:09 Expected date of discharge: 10/16/19 Attending physician: Kassidy Clarke Primary care physician: Stated None - Discharge Diagnosis(es) (1) Gestational hypertension Current Visit: Yes Status: Acute (2) Normal vaginal delivery Current Visit: Yes Status: Acute Hospital Course: Patient presented for induction of labor at 37 weeks and 4 days due to gestational hypertension. She underwent normal vaginal delivery. she was kept on labetalol 100 mg twice daily. Her blood pressure went elevated just prior to her next dose so this seems to be the appropriate medication. She denies signs and symptoms of preeclampsia any symptoms were reviewed with her several times. She'll be discharged home day #2 in stable condition on labetalol 100 mg twice daily, to follow-up with Dr. Clarke in one week for blood pressure check. Plan - Discharge Summary New Discharge Prescriptions: New Ibuprofen [Motrin] 600 mg PO Q6HR PRN #60 tab PRN Reason: Mild Pain Or Fever >= 100.5 Labetalol [Trandate] 100 mg PO BID #30 tab Discharge Medication List Ibuprofen [Motrin] 600 mg PO Q6HR PRN #60 tab 10/15/19 [Rx] Labetalol [Trandate] 100 mg PO BID #30 tab 10/15/19 [Rx] Follow up Appointment(s)/Referral(s): Kassidy Clarke DO [Doctor of Osteopathic Medicine] - 1 Week (Follow-up in 1 week for a blood pressure check and in 6 weeks for check.) Activity/Diet/Wound Care/Special Instructions: Instructions 1. Do not begin any exercise program for 3 weeks. 2. Do not resume sexual relations for 3 weeks or longer if uncomfortable. 3. You may take tub baths or showers at any time. 4. You may use tampons if desired after 3 weeks. 5. Keep the area of episiotomy (stitches) clean and dry. 6. If you are not nursing, wear a good fitting, supportive bra during the day and limit fluid intake for at least 1 week to prevent breast engorgement. 7. Call the office, [phone], within the next week to make appointment for your 6 week checkup if it has not already been made. 8. Report any of the following occurrences to the doctor promptly: a. Heavy, excessive bleeding b. Chills, fever c. Burning or frequency of urination d. Pain or redness and breasts if nursing e. Increasing pain or swelling in episiotomy (stitches). In addition to the above instructions, the following additional should be followed: 1. No heavy lifting or straining (exercising) until after 6 week checkup. 2. Keep abdominal incision clean and dry: You may wear a dressing if more comfortable. 3. Make office appointment for 10 days after going home or as instructed by her doctor. Discharge Disposition: HOME SELF-CARE
[2019-10-16 09:09] VITALS: BP 149/99; PULSE 97
[2019-10-16] MEDS ORDERED: HYDROCORTISONE SUPPOSITORY 25 MG SUPP RECTAL STA (11:08)
== END 2019-10-16 13:53 | disposition home or self-care (01) | DRG 807 ==
LOC: FBPOP 11:03 → 4FBP 12:09
PROVIDERS: ADMIT Obstetrics & Gynecology; ATTEND Obstetrics & Gynecology
PROC: 10E0XZZ Delivery of Products of Conception, External Approach (ICD-10-PCS; principal; 2019-10-14)
PROC: 3E0P7VZ Introduction of Hormone into Female Reproductive, Via Natural or Artificial Opening (ICD-10-PCS; principal; 2019-10-14)
DX: O13.4 Gestational [pregnancy-induced] hypertension without significant proteinuria, complicating childbirth (principal); Z37.0 Single live birth; O62.3 Precipitate labor; Z3A.37 37 weeks gestation of pregnancy; Z86.59 Personal history of other mental and behavioral disorders; Z83.3 Family history of diabetes mellitus
CPT/HCPCS: 59025; 81001; 82565; 82570; 83615; 84156; 84450; 84460; 84520; 84550; 85025; 85610; 85730; 86850; 86900; 86901; 88307; 99215

== ENCOUNTER → 2021-01-31 | Outpatient (CLI) | payer MEDICAID | END | disposition home or self-care (01) | LOC: LABWHC1 14:45 | PROVIDERS: ATTEND Emergency Medicine | DX: Z03.818 Encounter for observation for suspected exposure to other biological agents ruled out (principal); Z20.822 Contact with and (suspected) exposure to COVID-19 | CPT/HCPCS: 87635 ==

== ENCOUNTER → 2021-04-25 | Outpatient (CLI) | payer MEDICAID, OTHER | END | disposition home or self-care (01) | LOC: LABMAIN 14:48 | PROVIDERS: ATTEND Emergency Medicine | DX: Z20.822 Contact with and (suspected) exposure to COVID-19 (principal) | CPT/HCPCS: 87635 ==

== ENCOUNTER → 2021-04-26 | Outpatient (CLI) | payer MEDICAID, OTHER | END | disposition home or self-care (01) | LOC: LABWHC1 14:33 | PROVIDERS: ATTEND Emergency Medicine | DX: Z20.822 Contact with and (suspected) exposure to COVID-19 (principal) | CPT/HCPCS: 87635 ==

== ENCOUNTER → 2021-06-08 | Outpatient (CLI) | payer MEDICAID, OTHER | END | disposition home or self-care (01) | LOC: LABWHC1 11:29 | PROVIDERS: ATTEND Emergency Medicine | DX: U07.1 COVID-19 (principal) | CPT/HCPCS: 87635 ==

== ENCOUNTER → 2021-07-09 | Outpatient (CLI) | payer MEDICAID, OTHER ==
--- NOTE | 2021-07-10 06:46 | US ---
EXAMINATION TYPE: Transabdominal DATE OF EXAM: 07/09/2021 4:07 PM COMPARISON: NONE CLINICAL HISTORY: Z36.89 CONFIRM GEST AGE AND VIABILITY. Unsure of last menstrual period. EXAM PERFORMED: Transabdominal (TA) EXAM MEASUREMENTS: GESTATIONAL AGE / DATING Dates by LMP: (14 weeks/0 days) EDC: 01/07/2022 Dates by Current Scan for: (13 weeks/5 days) EDC: 01/09/2022 MATERNAL ANATOMY Uterus: 14.2 x 10.1 x 6.8cm Right Ovary: 2.6 x 2.8 x 1.8cm Left Ovary: 2.1 x 2.4 x 1.3cm Presence of free fluid: No Presence of corpus luteal cyst: possible Right Corpus luteal cyst measuring,1.3 x 1.3 x 1.1cm Presence of subchorionic bleed: No GESTATION / SURVEY CRL: 7.7 cm (13 weeks/5 days) Yolk Sac (normal less than 6mm): Not seen Heart Rate: 147 bpm Rhythm: Normal IUP: Viable IUP Date of LMP: 04/02/2021 Beta HcG (if available): Not available at this time Single live intrauterine gestation is present as gestational sac and pole are seen. Yolk sac no t identified. No free fluid in pelvic cul-de-sac. Both ovaries seen. Within the right ovary there is a 1.3 cm thin-walled cyst possible corpus luteal c yst. No suspicious extra ovarian adnexal masses. IMPRESSION: Single live intrauterine gestation identified. Mean crown-rump length 7.7 cm corresponding to 13 week s 5 day old fetus.
== END | disposition home or self-care (01) ==
LOC: RADUSWWP 15:47
PROVIDERS: ATTEND Obstetrics & Gynecology
DX: Z36.89 Encounter for other specified antenatal screening (principal); Z3A.13 13 weeks gestation of pregnancy
CPT/HCPCS: 76801

== ENCOUNTER 2021-11-20 17:27 | Outpatient (CLI) | payer MEDICAID, OTHER ==
[2021-11-20 18:29] VITALS: BP 135/75; PULSE 85; RESP 16; TEMP 97
--- NOTE | 2021-11-20 18:56 | P.MSEPDOC ---
Presenting Problems - Arrival Data Date of Arrival on Unit: 11/20/21 Time of Arrival on Unit: 17:27 Mode of Transport: Ambulatory - Complaint OB-Reason for Admission/Chief Complaint: NST Medical History - Information : 4 Para: 2 Term: 2 : 0 Abortions: Spontaneous or Elective: 1 Number of Living Children: 2 - Gestational Age Gestational Age by SEGUNDO (wks/days): 33 Weeks and 1 Days - History Complications: GDM Review of Systems - Review of Systems Constitutional: No problems Breast: No problems ENT: No problems Cardiovascular: No problems Respiratory: No problems Gastrointestinal: No problems Genitourinary: No problems Musculoskeletal: No problems Neurological: No problems Skin: No problems Vital Signs - Temperature Temperature: 97.0 F Temperature Source: Axillary - Pulse Right Sitting Pulse Rate: 85 Pulse Assessment Method: Automatic Cuff - Respirations Respiratory Rate: 16 Oxygen Delivery Method: Room Air - Blood Pressure Right Arm Blood Pressure: 135/75 Blood Pressure Mean: 95 Blood Pressure Source: Automatic Cuff Medical Screen Scoring - Assessment - Baby A Baseline FHR: 125 Heart Rate - NICHD Category: Category I (Normal) NST: Reactive Physician Notification - Physician Notified Physician Notified Date: 11/20/21 Physician Notified Time: 18:07 Physician: Librado Angeles New Order Received: Yes (d/c home) Maternal Triage Index - Maternal Triage Index Presenting for scheduled procedure w/no complaint: Yes - Scheduled/Requesting Priority 5 Scheduled/Requesting Priority 5: Yes Criteria Met for Priority 5: nst with written order Disposition - Disposition OB Disposition: Discharge to home Discharge Date: 11/20/21 Discharge Time: 18:18 I agree with the RN Medical Screening Exam: Yes Case reviewed; plan agreed upon as documented in EMR&OBIX.: Yes Diagnosis: RELATED CONDITIONS, UNSPECIFIED, THIRD TRIMESTER (Patient presents to labor and delivery for scheduled nonstress tests per Dr. Clarke. Nonstress test is reactive.)
== END 2021-11-20 18:18 | disposition home or self-care (01) ==
LOC: FBPOP 17:27
PROVIDERS: ATTEND Obstetrics & Gynecology
DX: O24.419 Gestational diabetes mellitus in pregnancy, unspecified control (principal); Z3A.33 33 weeks gestation of pregnancy
CPT/HCPCS: 59025

== ENCOUNTER → 2021-11-21 | Outpatient (CLI) | payer MEDICAID, OTHER ==
--- NOTE | 2021-11-21 09:20 | US ---
EXAMINATION TYPE: US OB BPP wo non-stress DATE OF EXAM: 11/21/2021 COMPARISON: NONE CLINICAL HISTORY: R93.1 ABN FINDING ON DX IMAGING OF HEART AND COR C. EXAM PERFORMED: Transabdominal (TA) BPP PARAMETERS: PRESENTATION: Breech LIE: Longitudinal?? HEART RATE: 144 bpm RHYTHM: Normal VELIA: 14.7cm DIAPHRAGM IMAGED: yes BPP SCORIN. Breathin (1 episode of breathing of 30 second duration in 30 minutes of scanning time) 2. Movement: 2 (at least 3 discrete body movements in 30 minutes) 3. Tone: 2 (1 episode of active flexion/extension of limb) 4. VELIA: 2 (VELIA index > 5cm) TOTAL SCORE: 8 / 8 Incidental: bilateral dilated renal pelvis
== END | disposition home or self-care (01) ==
LOC: RADUSWWP 07:31
PROVIDERS: ATTEND Obstetrics & Gynecology
DX: O32.1XX0 Maternal care for breech presentation, not applicable or unspecified (principal); Z3A.00 Weeks of gestation of pregnancy not specified
CPT/HCPCS: 76819

== ENCOUNTER 2021-11-23 10:55 | Outpatient (CLI) | payer MEDICAID, OTHER ==
[2021-11-23 12:42] VITALS: BP 127/71; PULSE 80; RESP 18; TEMP 98.1
--- NOTE | 2021-11-23 18:36 | P.MSEPDOC ---
Presenting Problems - Arrival Data Date of Arrival on Unit: 11/23/21 Time of Arrival on Unit: 10:55 Mode of Transport: Ambulatory - Complaint OB-Reason for Admission/Chief Complaint: NST Medical History - Information : 4 Para: 2 Term: 2 : 0 Abortions: Spontaneous or Elective: 0 Number of Living Children: 2 - Gestational Age Gestational Age by SEGUNDO (wks/days): 33 Weeks and 4 Days - History Complications: GDM Review of Systems - Review of Systems Constitutional: No problems Breast: No problems ENT: No problems Cardiovascular: No problems Respiratory: No problems Gastrointestinal: No problems Genitourinary: No problems Musculoskeletal: No problems Neurological: No problems Skin: No problems Vital Signs - Temperature Temperature: 98.1 F Temperature Source: Oral - Pulse Right Pulse Rate: 80 Pulse Assessment Method: Automatic Cuff - Respirations Respiratory Rate: 18 O2 Sat by Pulse Oximetry: 100 - Blood Pressure Right Arm Blood Pressure: 127/71 Blood Pressure Mean: 89 Blood Pressure Source: Automatic Cuff Medical Screen Scoring - Assessment - Baby A Baseline FHR: 130 Heart Rate - NICHD Category: Category I (Normal) NST: Reactive Physician Notification - Physician Notified Physician Notified Date: 11/23/21 - Notification Comment Comment: RN spoke with Dr. Angeles and reported on. maternal/ status. Pt is here for a biweekly NST. Per Dr. Angeles, RN may DC pt post NST if her NST is. reactive and no concerns. NST reactive, pt DC home Maternal Triage Index - Maternal Triage Index Presenting for scheduled procedure w/no complaint: Yes - Scheduled/Requesting Priority 5 Scheduled/Requesting Priority 5: Yes Criteria Met for Priority 5: Biweekly NST Disposition - Disposition OB Disposition: Discharge to home Discharge Date: 11/23/21 Discharge Time: 11:45 I agree with the RN Medical Screening Exam: Yes Case reviewed; plan agreed upon as documented in EMR&OBIX.: Yes Diagnosis: RELATED CONDITIONS, UNSPECIFIED, THIRD TRIMESTER
== END 2021-11-23 11:45 | disposition home or self-care (01) ==
LOC: FBPOP 10:55
PROVIDERS: ATTEND Obstetrics & Gynecology
DX: O26.93 Pregnancy related conditions, unspecified, third trimester (principal); Z3A.33 33 weeks gestation of pregnancy
CPT/HCPCS: 59025

== ENCOUNTER 2021-11-27 12:45 | Outpatient (CLI) | payer MEDICAID, OTHER ==
[2021-11-27 13:39] VITALS: BP 130/70; PULSE 88; RESP 18; TEMP 98
--- NOTE | 2021-12-01 12:25 | P.MSEPDOC ---
Presenting Problems - Arrival Data Date of Arrival on Unit: 11/27/21 Time of Arrival on Unit: 12:45 Mode of Transport: Ambulatory - Complaint OB-Reason for Admission/Chief Complaint: NST Comment: pt here for biweekly NST Medical History - Information : 4 Para: 2 Term: 2 : 0 Abortions: Spontaneous or Elective: 1 Number of Living Children: 2 - Gestational Age Gestational Age by SEGUNDO (wks/days): 34 Weeks and 1 Days - History Complications: GDM Review of Systems - Review of Systems Constitutional: No problems Breast: No problems ENT: No problems Cardiovascular: No problems Respiratory: No problems Gastrointestinal: No problems Genitourinary: No problems Musculoskeletal: No problems Neurological: No problems Skin: No problems Vital Signs - Temperature Temperature: 98.0 F Temperature Source: Oral - Pulse Right Pulse Rate: 88 Pulse Assessment Method: Pulse Oximetry - Respirations Respiratory Rate: 18 Oxygen Delivery Method: Room Air O2 Sat by Pulse Oximetry: 98 - Blood Pressure Right Arm Blood Pressure: 130/70 Blood Pressure Mean: 90 Blood Pressure Source: Automatic Cuff Medical Screen Scoring - Assessment - Baby A Baseline FHR: 130 Heart Rate - NICHD Category: Category I (Normal) NST: Reactive Physician Notification - Physician Notified Physician Notified Date: 11/27/21 Physician Notified Time: 13:10 Physician: Librado Angeles New Order Received: Yes - Notification Comment Comment: RN discussed pt's PPD questionaire results. Pt states that she "hardly ever" has thoughts of. harming herself. Pt states that she would not harm. herself, she just gets really stressed out when she. has some issues at home with spouse/family. Pt denies. suicidal thoughts. RN spoke with Dr. Angeles. Reported to Dr. Angeles on maternal/ status, reactive NST,. concerns about depression screen. Per Dr. Angeles, pt. needs to discuss this with Dr. Clarke at her apt on. . Pt also asked if she can take her Metformin. in the moring instead of at dinner d/t NVD; Dr. Angeles said that is okay. Pt may DC home and follow. up with Dr. Clarke . Maternal Triage Index - Maternal Triage Index Presenting for scheduled procedure w/no complaint: Yes - Scheduled/Requesting Priority 5 Scheduled/Requesting Priority 5: Yes Criteria Met for Priority 5: Pt here for biweekly NST with written order from Dr. Clarke's office Disposition - Disposition OB Disposition: Discharge to home Discharge Date: 11/27/21 Discharge Time: 13:20 I agree with the RN Medical Screening Exam: Yes Case reviewed; plan agreed upon as documented in EMR&OBIX.: Yes Diagnosis: GESTATIONAL DIABETES MELLITUS IN , UNSP CONTROL
== END 2021-11-27 13:20 | disposition home or self-care (01) ==
LOC: FBPOP 12:45
PROVIDERS: ATTEND Obstetrics & Gynecology
DX: O24.419 Gestational diabetes mellitus in pregnancy, unspecified control (principal); Z3A.34 34 weeks gestation of pregnancy
CPT/HCPCS: 59025

== ENCOUNTER → 2021-11-28 | Outpatient (CLI) | payer MEDICAID, OTHER ==
--- NOTE | 2021-11-28 09:26 | US ---
EXAMINATION TYPE: US OB BPP wo non-stress DATE OF EXAM: 11/28/2021 COMPARISON: US CLINICAL HISTORY: [id number] GESTATIONAL DM. Gestational diabetes mellitus. . Hx 1 miscarriage. EXAM PERFORMED: Transabdominal (TA) BPP PARAMETERS: PRESENTATION: Vertex LIE: Longitudinal?? HEART RATE: 159 bpm RHYTHM: Normal VELIA: 11.14 DIAPHRAGM IMAGED: Yes BPP SCORIN. Breathin (1 episode of breathing of 30 second duration in 30 minutes of scanning time) 2. Movement: 2 (at least 3 discrete body movements in 30 minutes) 3. Tone: 2 (1 episode of active flexion/extension of limb) 4. VELIA: 2 (VELIA index > 5cm) TOTAL SCORE: 8 / 8 *Incidental: Right renal pelvis appears dilated, as seen on prior, measuring 0.67 cm today. Unable to visualize left kidney.
== END | disposition home or self-care (01) ==
LOC: RADUSWWP 07:22
PROVIDERS: ATTEND Obstetrics & Gynecology
DX: O24.419 Gestational diabetes mellitus in pregnancy, unspecified control (principal); Z3A.00 Weeks of gestation of pregnancy not specified
CPT/HCPCS: 76819

== ENCOUNTER 2021-12-01 12:05 | Outpatient (CLI) | payer MEDICAID, OTHER ==
[2021-12-01 12:54] VITALS: BP 106/70; PULSE 97
--- NOTE | 2021-12-02 11:16 | P.MSEPDOC ---
Presenting Problems - Arrival Data Date of Arrival on Unit: 12/01/21 Time of Arrival on Unit: 12:05 Mode of Transport: Ambulatory - Complaint OB-Reason for Admission/Chief Complaint: NST Comment: Pt presents to triage for nst, she gets nst's 2 times a week for gestational diabetes Medical History - Information : 4 Para: 2 Term: 2 : 0 Abortions: Spontaneous or Elective: 1 Number of Living Children: 2 - Gestational Age Gestational Age by SEGUNDO (wks/days): 34 Weeks and 5 Days - History Complications: GDM Review of Systems - Review of Systems Constitutional: No problems Breast: No problems ENT: No problems Cardiovascular: No problems Respiratory: No problems Gastrointestinal: No problems Genitourinary: No problems Musculoskeletal: No problems Neurological: No problems Skin: No problems Vital Signs - Pulse Right Brachial Pulse Rate: 97 - Blood Pressure Right Arm Blood Pressure: 106/70 Blood Pressure Mean: 82 Blood Pressure Source: Automatic Cuff Medical Screen Scoring - Assessment - Baby A Baseline FHR: 130 Heart Rate - NICHD Category: Category I (Normal) NST: Reactive Physician Notification - Physician Notified Physician Notified Date: 12/01/21 Physician Notified Time: 12:23 Physician: Kassidy Clarke Order Received: Yes - Notification Comment Comment: reactive nst, pt discharged home Maternal Triage Index - Maternal Triage Index Presenting for scheduled procedure w/no complaint: Yes - Scheduled/Requesting Priority 5 Scheduled/Requesting Priority 5: Yes Criteria Met for Priority 5: Pt presents to triage for nst, she gets nst's 2 times a week for gestational diabetes, GA 34 09/27 Disposition - Disposition OB Disposition: Triage, Discharge to home, Written follow up instructions reviewed Discharge Date: 12/01/21 Discharge Time: 12:45 I agree with the RN Medical Screening Exam: Yes Case reviewed; plan agreed upon as documented in EMR&OBIX.: Yes Diagnosis: GESTATIONAL DIABETES MELLITUS IN , UNSP CONTROL
== END 2021-12-01 12:45 | disposition home or self-care (01) ==
LOC: FBPOP 12:05
PROVIDERS: ATTEND Obstetrics & Gynecology
DX: O24.419 Gestational diabetes mellitus in pregnancy, unspecified control (principal); Z3A.34 34 weeks gestation of pregnancy
CPT/HCPCS: 59025

== ENCOUNTER 2021-12-04 11:36 | Outpatient (CLI) | payer MEDICAID, OTHER ==
[2021-12-04 12:36] VITALS: BP 117/68; PULSE 89; RESP 18; TEMP 98
--- NOTE | 2021-12-06 13:20 | P.MSEPDOC ---
Presenting Problems - Arrival Data Date of Arrival on Unit: 12/04/21 Time of Arrival on Unit: 11:36 Mode of Transport: Ambulatory - Complaint OB-Reason for Admission/Chief Complaint: NST Comment: with order for NST. Medical History - Information : 4 Para: 2 Term: 2 : 0 Abortions: Spontaneous or Elective: 1 Number of Living Children: 2 - Gestational Age Gestational Age by SEGUNDO (wks/days): 35 Weeks and 1 Days Review of Systems - Review of Systems Constitutional: No problems Breast: No problems ENT: No problems Cardiovascular: No problems Respiratory: No problems Gastrointestinal: No problems Genitourinary: No problems Musculoskeletal: No problems Neurological: No problems Skin: No problems Vital Signs - Temperature Temperature: 98.0 F Temperature Source: Temporal Artery Scan - Pulse Right Pulse Rate: 89 Pulse Assessment Method: Pulse Oximetry - Respirations Respiratory Rate: 18 Oxygen Delivery Method: Room Air O2 Sat by Pulse Oximetry: 98 - Blood Pressure Right Arm Blood Pressure: 117/68 Blood Pressure Mean: 84 Blood Pressure Source: Automatic Cuff Medical Screen Scoring - Assessment - Baby A Baseline FHR: 130 Heart Rate - NICHD Category: Category I (Normal) NST: Reactive Physician Notification - Physician Notified Physician Notified Date: 12/04/21 Physician Notified Time: 12:30 Physician: Kassidy Clarke Order Received: Yes (discharge home.) Maternal Triage Index - Maternal Triage Index Presenting for scheduled procedure w/no complaint: No - Stat/Priority 1 Stat Priority 1: No - Urgent/Priority 2 Urgent Priority 2: No - Prompt/Priority 3 Prompt Priority 3: No - Non-Urgent/Priority 4 Non-Urgent Priority 4: No - Scheduled/Requesting Priority 5 Scheduled/Requesting Priority 5: Yes Criteria Met for Priority 5: NST. Disposition - Disposition OB Disposition: Discharge to home Discharge Date: 12/04/21 Discharge Time: 12:29 I agree with the RN Medical Screening Exam: Yes Case reviewed; plan agreed upon as documented in EMR&OBIX.: Yes Diagnosis: GESTATIONAL DIABETES MELLITUS IN , UNSP CONTROL
== END 2021-12-04 12:29 | disposition home or self-care (01) ==
LOC: FBPOP 11:36
PROVIDERS: ATTEND Obstetrics & Gynecology
DX: O24.419 Gestational diabetes mellitus in pregnancy, unspecified control (principal); Z3A.35 35 weeks gestation of pregnancy
CPT/HCPCS: 59025

== ENCOUNTER → 2021-12-05 | Outpatient (CLI) | payer MEDICAID ==
--- NOTE | 2021-12-05 07:49 | US ---
EXAMINATION TYPE: US OB BPP wo non-stress DATE OF EXAM: 12/05/2021 COMPARISON: Prior study one week ago CLINICAL HISTORY: [id number] GESTATIONAL DM. DM, active baby, no complaints EXAM PERFORMED: Transabdominal (TA) BPP PARAMETERS: PRESENTATION: Vertex LIE: Longitudinal?? HEART RATE: 142 bpm RHYTHM: Normal VELIA: 19.8 DIAPHRAGM IMAGED: yes BPP SCORIN. Breathin (1 episode of breathing of 30 second duration in 30 minutes of scanning time) 2. Movement: 2 (at least 3 discrete body movements in 30 minutes) 3. Tone: 2 (1 episode of active flexion/extension of limb) 4. VELIA: 2 (VELIA index > 5cm) TOTAL SCORE: 8 / 8 Impression: Normal NST.
== END | disposition home or self-care (01) ==
LOC: RADUSWWP 06:52
PROVIDERS: ATTEND Obstetrics & Gynecology
DX: O24.419 Gestational diabetes mellitus in pregnancy, unspecified control (principal); Z3A.00 Weeks of gestation of pregnancy not specified
CPT/HCPCS: 76819

== ENCOUNTER 2021-12-11 17:29 | Outpatient (CLI) | payer MEDICAID, OTHER | END 2021-12-11 18:03 | disposition home or self-care (01) | LOC: FBPOP 17:29 | PROVIDERS: ATTEND Obstetrics & Gynecology | DX: O24.419 Gestational diabetes mellitus in pregnancy, unspecified control (principal); Z3A.36 36 weeks gestation of pregnancy | CPT/HCPCS: 59025 ==

== ENCOUNTER 2021-12-19 19:50 | Outpatient (CLI) | payer MEDICAID ==
[2021-12-19 20:43] VITALS: BP 119/76; PULSE 84; RESP 18; TEMP 96.4
== END 2021-12-19 20:40 | disposition home or self-care (01) ==
LOC: FBPOP 19:50
PROVIDERS: ATTEND Obstetrics & Gynecology
DX: O24.419 Gestational diabetes mellitus in pregnancy, unspecified control (principal); Z3A.37 37 weeks gestation of pregnancy; Z79.84 Long term (current) use of oral hypoglycemic drugs
CPT/HCPCS: 59025; 59200

== ENCOUNTER → 2021-12-21 | Outpatient (CLI) | payer MEDICAID ==
--- NOTE | 2021-12-21 08:53 | US ---
EXAMINATION TYPE: US OB BPP wo non-stress DATE OF EXAM: 12/21/2021 COMPARISON: 12/05/21 CLINICAL HISTORY: O24.419 GESTATIONAL MD. EXAM PERFORMED: Transabdominal (TA) BPP PARAMETERS: PRESENTATION: Vertex LIE: Longitudinal?? HEART RATE: 127 bpm RHYTHM: Normal VELIA: 15.8 DIAPHRAGM IMAGED: Yes BPP SCORIN. Breathin (1 episode of breathing of 30 second duration in 30 minutes of scanning time) 2. Movement: 2 (at least 3 discrete body movements in 30 minutes) 3. Tone: 2 (1 episode of active flexion/extension of limb) 4. VELIA: 2 (VELIA index > 5cm) TOTAL SCORE: 8 / 8 IMPRESSIONS: 1. Normal biophysical profile scoring 8 out of 8 points. Cardiac activity measures 127 bpm.
== END | disposition home or self-care (01) ==
LOC: RADUSWWP 07:46
PROVIDERS: ATTEND Obstetrics & Gynecology
DX: O24.419 Gestational diabetes mellitus in pregnancy, unspecified control (principal)
CPT/HCPCS: 76819

== ENCOUNTER 2021-12-26 13:28 | Outpatient (CLI) | payer MEDICAID ==
[2021-12-26 14:05] VITALS: BP 126/74; PULSE 77; RESP 18; TEMP 97.1
== END 2021-12-26 14:01 | disposition home or self-care (01) ==
LOC: FBPOP 13:28
PROVIDERS: ATTEND Obstetrics & Gynecology
DX: O24.419 Gestational diabetes mellitus in pregnancy, unspecified control (principal); Z3A.38 38 weeks gestation of pregnancy
CPT/HCPCS: 59025

== ENCOUNTER → 2021-12-28 | Outpatient (CLI) | payer MEDICAID ==
--- NOTE | 2021-12-28 08:42 | US ---
EXAMINATION TYPE: US OB BPP wo non-stress DATE OF EXAM: 12/28/2021 COMPARISON: US 2021 CLINICAL HISTORY: O24.419 GESTATIONAL DM. EXAM PERFORMED: Transabdominal (TA) Comparison: Prior study 1 week earlier. BPP PARAMETERS: PRESENTATION: Vertex LIE: Longitudinal?? HEART RATE: 136 bpm RHYTHM: Normal VELIA: 10.9cm DIAPHRAGM IMAGED: yes BPP SCORIN. Breathin (1 episode of breathing of 30 second duration in 30 minutes of scanning time) 2. Movement: 2 (at least 3 discrete body movements in 30 minutes) 3. Tone: 2 (1 episode of active flexion/extension of limb) 4. VELIA: 2 (VELIA index > 5cm) TOTAL SCORE: 8 / 8 Impression: Normal NST.
== END | disposition home or self-care (01) ==
LOC: RADUSWWP 07:44
PROVIDERS: ATTEND Obstetrics & Gynecology
DX: O24.419 Gestational diabetes mellitus in pregnancy, unspecified control (principal)
CPT/HCPCS: 76819

== ENCOUNTER 2022-01-01 13:47 | Outpatient (CLI) | payer MEDICAID ==
[2022-01-01 14:23] VITALS: BP 126/77; PULSE 91; RESP 16; TEMP 97.5
--- NOTE | 2022-01-01 21:01 | P.MSEPDOC ---
Presenting Problems - Arrival Data Date of Arrival on Unit: 01/01/22 Time of Arrival on Unit: 13:47 Mode of Transport: Ambulatory - Complaint OB-Reason for Admission/Chief Complaint: NST Comment: bi weekly nst for gdm Medical History - Information : 4 Para: 2 Term: 2 : 0 Abortions: Spontaneous or Elective: 1 Number of Living Children: 2 - Gestational Age Gestational Age by SEGUNDO (wks/days): 39 Weeks and 1 Days - History Complications: GDM Review of Systems - Review of Systems Constitutional: No problems Breast: No problems ENT: No problems Cardiovascular: No problems Respiratory: No problems Gastrointestinal: No problems Genitourinary: No problems Musculoskeletal: No problems Neurological: No problems Skin: No problems Vital Signs - Temperature Temperature: 97.5 F Temperature Source: Oral - Pulse Right Brachial Pulse Rate: 91 Pulse Assessment Method: Automatic Cuff - Respirations Respiratory Rate: 16 Oxygen Delivery Method: Room Air O2 Sat by Pulse Oximetry: 98 - Blood Pressure Right Arm Blood Pressure: 126/77 Blood Pressure Mean: 93 Blood Pressure Source: Automatic Cuff Medical Screen Scoring - Assessment - Baby A Baseline FHR: 125 Heart Rate - NICHD Category: Category I (Normal) NST: Reactive Physician Notification - Physician Notified Physician Notified Date: 01/01/22 Physician Notified Time: 14:20 Physician: Kassidy Clarke Order Received: Yes (pt ok to dc home after reactive nst) Maternal Triage Index - Maternal Triage Index Presenting for scheduled procedure w/no complaint: Yes - Scheduled/Requesting Priority 5 Scheduled/Requesting Priority 5: No Disposition - Disposition OB Disposition: Discharge to home, Written follow up instructions reviewed Discharge Date: 01/01/22 Discharge Time: 14:23 I agree with the RN Medical Screening Exam: Yes Case reviewed; plan agreed upon as documented in EMR&OBIX.: Yes Diagnosis: GESTATIONAL DIABETES MELLITUS IN , UNSP CONTROL
== END 2022-01-01 14:20 | disposition home or self-care (01) ==
LOC: FBPOP 13:47
PROVIDERS: ATTEND Obstetrics & Gynecology
DX: O24.419 Gestational diabetes mellitus in pregnancy, unspecified control (principal); Z3A.39 39 weeks gestation of pregnancy
CPT/HCPCS: 59025; 99213

== ENCOUNTER 2022-01-06 03:15 | Inpatient (IN) | payer MEDICAID ==
[2022-01-06] MEDS ORDERED: OXYTOCIN 10 UNIT/ML 1 ML VIAL IM PRN (03:30)
[2022-01-06] MEDS ORDERED: LACTATED RINGERS 1,000 ML IV SCH (03:30)
[2022-01-06] MEDS ORDERED: LIDOCAINE 0.5% (PF) 5 MG/ML (50 ML SDV) SQ PRN (03:30)
[2022-01-06] MEDS ORDERED: METHYLERGONOVINE 0.2 MG/ML 1 ML AMP IM PRN (03:30)
[2022-01-06] MEDS ORDERED: TERBUTALINE 1 MG/ML VIAL SQ PRN (03:30)
[2022-01-06] MEDS ORDERED: CARBOPROST TROMETHAMINE 250 MCG/ML 1 ML AMP IM PRN (03:30)
[2022-01-06 03:51] LABS: Glucose,Whole Blood 108 mg/dL (70-110)
[2022-01-06 04:23] LABS: Basophils % (A) 0 %; Eosinophils # (A) 0.1 k/uL (0-0.7); Eosinophils % (A) 1 %; HCT 36.1 % (34.0-46.0); HGB 11.9 gm/dL (11.4-16.0); Lymphocytes # (A) 2.2 k/uL (1.0-4.8); Lymphocytes % (A) 25 %; MCH 27.3 pg (25.0-35.0); MCHC 33.1 g/dL (31.0-37.0); MCV 82.4 fL (80.0-100.0); Mean Platelet Volume 7.6; Monocytes # (A) 0.4 k/uL (0-1.0); Monocytes % (A) 4 %; Neutrophils # (A) 5.9 k/uL (1.3-7.7); Neutrophils % (A) 67 %; Platelet Count 348 k/uL (150-450); RBC 4.38 m/uL (3.80-5.40); RDW 13.7 % (11.5-15.5); WBC 8.7 k/uL (3.8-10.6)
--- NOTE | 2022-01-06 05:09 | P.HPOB ---
History of Present Illness H&P Date: 01/06/22 Chief Complaint: Labor 31-year-old presents at 39 weeks and 6 days in active labor. Her cervix is 8 cm dilated, 90% effaced, -2 station. Eloy every 3-4 minutes. heart tones 135 with moderate variability and reactive. She has gestational diabetes with this her blood sugar is 108. Review of Systems All systems: negative Constitutional: Denies chills, Denies fever Eyes: denies blurred vision, denies pain Ears, nose, mouth and throat: Denies headache, Denies sore throat Cardiovascular: Denies chest pain, Denies shortness of breath Respiratory: Denies cough Gastrointestinal: Denies abdominal pain, Denies diarrhea, Denies nausea, Denies vomiting Genitourinary: Denies dysuria, Denies hematuria Musculoskeletal: Denies myalgias Integumentary: Denies pruritus, Denies rash Neurological: Denies numbness, Denies weakness Psychiatric: Denies anxiety, Denies depression Endocrine: Denies fatigue, Denies weight change Past Medical History Past Medical History: No Reported History History of Any Multi-Drug Resistant Organisms: None Reported Past Surgical History: Appendectomy Additional Past Surgical History / Comment(s): 2005 Past Anesthesia/Blood Transfusion Reactions: No Reported Reaction Past Psychological History: Depression Smoking Status: Never smoker Past Alcohol Use History: None Reported Past Drug Use History: Marijuana Additional Drug Use History / Comment(s): quit for - Past Family History Father Family Medical History: Diabetes Mellitus Medications and Allergies Home Medications Medication Instructions Recorded Confirmed Type Aspirin [Adult Low Dose Aspirin EC] 81 mg PO DAILY 11/20/21 12/26/21 History Pnv No.95/Ferrous Fum/Folic AC 1 each PO DAILY 11/20/21 12/26/21 History [ Multivitamin Tablet] metFORMIN HCL 500 mg PO DAILY 11/20/21 12/26/21 History Allergies Allergy/AdvReac Type Severity Reaction Status Date / Time No Known Allergies Allergy Verified 01/01/22 13:59 Exam Osteopathic Statement: *. No significant issues noted on an osteopathic structural exam other than those noted in the History and Physical/Consult. Vital Signs Temp Pulse Resp BP Pulse Ox 01/06/22 03:30 97.2 F L 86 16 136/93 98 Intake and Output 01/05/22 01/05/22 01/06/22 14:59 22:59 06:59 Other: Weight 81.647 kg Heart: Regular rate and rhythm Lungs: Clear to auscultation bilaterally Abdomen: Soft, nontender Extremities: Negative Homans sign Results Result Diagrams: 01/06/22 03:20 Assessment and Plan (1) Active labor Current Visit: Yes Status: Acute Code(s): [id number] - SNOMED Code(s): 084634553 (2) 39 weeks gestation of Current Visit: Yes Status: Acute Code(s): Z3A.39 - 39 WEEKS GESTATION OF SNOMED Code(s): 15434265 (3) Gestational diabetes mellitus, class A1 Current Visit: Yes Status: Acute Code(s): O24.410 - GESTATIONAL DIABETES MELLITUS IN , DIET CONTROLLED SNOMED Code(s): 82688227 Plan: 1. Admit to family place 2. Expectant management 3. Anticipate normal vaginal delivery
--- NOTE | 2022-01-06 05:10 | P.PROBDLV ---
Vaginal Delivery Note - . Vaginal Delivery Note: 31-year-old presents at 39 weeks and 6 days in active labor. Her cervix is 8 cm dilated, 90% effaced, -2 station. Eloy every 3-4 minutes. heart tones 135 with moderate variability and reactive. She has gestational diabetes with this her blood sugar is 108. Amniotomy was performed at 3:54 AM and clear fluid noted. Her cervix is completely dilated at 4:45 AM. She pushed, delivered a viable male over intact perineum under epidural anesthesia at 4:52 AM. Head delivered OA, anterior shoulder delivered gentle downward guidance followed by posterior shoulder and rest of body. Nose and mouth bulb suctioned, cord clamped and cut, infant placed on mother's abdomen. Apgars 9, 9, weight 7 lbs. 2 oz. Placenta delivered spontaneously, intact with three-vessel cord at 4:58 AM. Vagina, cervix, perineum inspected. No laceratio ns noted. The left labia is quite swollen to about 3-4 cm. Estimated blood loss 150 mL mother and baby in stable condition.
[2022-01-06] MEDS ORDERED: SIMETHICONE 80 MG CHEWABLE PO PRN (05:11)
[2022-01-06] MEDS ORDERED: ZOLPIDEM 5 MG TAB PO PRN (05:11)
[2022-01-06] MEDS ORDERED: HYDROCORTISONE 2.5% RECTAL CREAM 30 GM TUBE RECTAL PRN (05:11)
[2022-01-06] MEDS ORDERED: BENZOCAINE/MENTHOL SPRAY 1 GM/SPRAY AEROSOL TOPICAL PRN (05:11)
[2022-01-06] MEDS ORDERED: diphenhydrAMINE 25 MG CAP PO PRN (05:11)
[2022-01-06] MEDS ORDERED: LANOLIN CREAM 5 GM TUBE TOPICAL PRN (05:11)
[2022-01-06] MEDS ORDERED: diphenhydrAMINE 50 MG/ML 1 ML VIAL IVP PRN ×2 (05:11)
[2022-01-06] MEDS ORDERED: diphenhydrAMINE 50 MG CAP PO PRN (05:11)
[2022-01-06] MEDS ORDERED: OXYTOCIN 30 UNITS/500 ML NS 30 UNIT in SALINE 1 500ML.BAG IV SCH (05:15)
[2022-01-06] MEDS: IBUPROFEN 600 MG TAB PO PRN ×4 (05:20→21:50)
[2022-01-06] MEDS: ACETAMINOPHEN TAB 325 MG TAB PO PRN ×2 (08:03→13:45)
[2022-01-06] MEDS: SENNOSIDES-DOCUSATE SODIUM 1 EACH TAB PO SCH ×2 (08:07→21:51)
[2022-01-06 20:15] VITALS: RESP 16
[2022-01-07 07:26] LABS: Basophils # (A) 0.1 k/uL (0-0.2); Basophils % (A) 1 %; Eosinophils # (A) 0.1 k/uL (0-0.7); Eosinophils % (A) 2 %; HCT 30.1 % (34.0-46.0); HGB 10.2 gm/dL (11.4-16.0); Lymphocytes % (A) 25 %; MCH 28.4 pg (25.0-35.0); MCHC 33.8 g/dL (31.0-37.0); MCV 84.2 fL (80.0-100.0); Mean Platelet Volume 7.3; Monocytes # (A) 0.3 k/uL (0-1.0); Monocytes % (A) 4 %; Neutrophils # (A) 5.5 k/uL (1.3-7.7); Neutrophils % (A) 67 %; Platelet Count 304 k/uL (150-450); RBC 3.58 m/uL (3.80-5.40); WBC 8.2 k/uL (3.8-10.6)
[2022-01-07 08:37] VITALS: BP 114/68; PULSE 83; TEMP 97.8
--- NOTE | 2022-01-07 08:42 | P.DS ---
Providers Date of admission: 01/06/22 03:27 Expected date of discharge: 01/07/22 Attending physician: Kassidy Clarke Primary care physician: Stated None Hospital Course: This is a 31-year-old female 4 para 2 at 39-6/7 weeks who presented in active labor. She delivered vaginally a viable male infant on 01/06/2022 with scores of 9 at 1 minute and 9 at 5 minutes and infant weight of 7 lbs. 2 oz. Her post course has been complicated by left labia hematoma that she has been using ice on. Overall her pain is fairly well controlled with ibuprofen. She states the swelling is going down slightly. Her bleeding has been moderate as far as her lochia. Vital signs are stable. Abdomen is soft with fundus firm and nontender. Extremities show negative Homans. Vulva is swollen on the left side with mild tenderness but no active bleeding is noted. Impression is status post vaginal delivery day #1. Plan is to discharge home later today. Patient is offered the opportunity to stay 1 more day however she wishes to go home today. She will be given a prescription for ibuprofen. She is advised follow-up in the office in 6 weeks for check. She is advised to call the office if she has any further questions or concerns prior to her appointment time. Procedures: Spontaneous vaginal delivery of a viable male infant on 01/06/2022 Patient Condition at Discharge: Stable Plan - Discharge Summary New Discharge Prescriptions: New Ibuprofen [Motrin] 600 mg PO Q6HR PRN #60 tab PRN Reason: Mild Pain (Scale 1 To 3) Continue Pnv No.95/Ferrous Fum/Folic AC [ Multivitamin Tablet] 1 each PO DAILY Discontinued metFORMIN HCL 500 mg PO DAILY Aspirin [Adult Low Dose Aspirin EC] 81 mg PO DAILY Discharge Medication List Pnv No.95/Ferrous Fum/Folic AC [ Multivitamin Tablet] 1 each PO DAILY 11/20/21 [History] Ibuprofen [Motrin] 600 mg PO Q6HR PRN #60 tab 01/07/22 [Rx] Follow up Appointment(s)/Referral(s): Kassidy Clarke DO [Doctor of Osteopathic Medicine] - 6 Weeks Activity/Diet/Wound Care/Special Instructions: Instructions 1. Do not begin any exercise program for 3 weeks. 2. Do not resume sexual relations for 3 weeks or longer if uncomfortable. 3. You may take tub baths or showers at any time. 4. You may use tampons if desired after 3 weeks. 5. Keep the area of episiotomy (stitches) clean and dry. 6. If you are not nursing, wear a good fitting, supportive bra during the day and limit fluid intake for at least 1 week to prevent breast engorgement. 7. Call the office, [phone], within the next week to make appointment for your 6 week checkup if it has not already been made. 8. Report any of the following occurrences to the doctor promptly: a. Heavy, excessive bleeding b. Chills, fever c. Burning or frequency of urination d. Pain or redness and breasts if nursing e. Increasing pain or swelling in episiotomy (stitches). In addition to the above instructions, the following additional should be followed: 1. No heavy lifting or straining (exercising) until after 6 week checkup. 2. Keep abdominal incision clean and dry: You may wear a dressing if more comfortable. 3. Make office appointment for 10 days after going home or as instructed by her doctor. Discharge Disposition: HOME SELF-CARE
[2022-01-07] MEDS: SENNOSIDES-DOCUSATE SODIUM 1 EACH TAB PO SCH (08:43)
[2022-01-07] MEDS: ACETAMINOPHEN TAB 325 MG TAB PO PRN (08:46)
== END 2022-01-07 14:59 | disposition home or self-care (01) | DRG 806 ==
LOC: FBPOP 03:15 → 4FBP 03:27
PROVIDERS: ADMIT Obstetrics & Gynecology; ATTEND Obstetrics & Gynecology
PROC: 00HU33Z Insertion of Infusion Device into Spinal Canal, Percutaneous Approach (ICD-10-PCS; principal; 2022-01-06)
PROC: 10E0XZZ Delivery of Products of Conception, External Approach (ICD-10-PCS; principal; 2022-01-06)
PROC: 3E0R3NZ Introduction of Analgesics, Hypnotics, Sedatives into Spinal Canal, Percutaneous Approach (ICD-10-PCS; principal; 2022-01-06)
PROC: 10907ZC Drainage of Amniotic Fluid, Therapeutic from Products of Conception, Via Natural or Artificial Opening (ICD-10-PCS; principal; 2022-01-06)
DX: O24.425 Gestational diabetes mellitus in childbirth, controlled by oral hypoglycemic drugs (principal); O71.7 Obstetric hematoma of pelvis; Z37.0 Single live birth; O99.344 Other mental disorders complicating childbirth; F32.A Depression, unspecified; Z3A.39 39 weeks gestation of pregnancy; Z79.82 Long term (current) use of aspirin; Z79.84 Long term (current) use of oral hypoglycemic drugs; Z83.3 Family history of diabetes mellitus; Z28.310 Unvaccinated for COVID-19
CPT/HCPCS: 85025; 86850; 86900; 86901